=== PATIENT | male | born 1945 | race Caucasian/White ===

== ENCOUNTER 2025-05-30 23:08 | Inpatient (IN) | payer MEDICARE, SELFPAY ==
[2025-05-30] VITALS (8 sets, daily range): BP systolic 125–151; BP diastolic 59–91; BMI 29.1
--- NOTE | 2025-05-30 17:41 | ED.GENMED ---
History of Present Illness
General
Chief Complaint: Abdominal Pain
Time Seen by Provider: 05/30/25 17:30
History of Present Illness
History of Present Illness:
79-year-old male history of atrial fibrillation on Xarelto, hypertension presenting with diffuse abdominal pain starting last night. Daughter states that patient had fever Tmax 101 last night with associated chills. Patient denies nausea, vomiting
or diarrhea. Patient denies urinary symptoms. Patient states that he did not take any of his medications today. Daughter reports constipation but patient states he is still passing gas. Patient denies any chest pain, shortness of breath, or
cough.
Phy Exam
Physical Exam
Physical Exam:
General: Alert, no acute distress
Head: NCAT
Eyes: clear conjunctiva
Neck: supple
Cardiac: Tachycardic, rhythm irregularly irregular
Lungs: clear to auscultation bilaterally. No wheezes, rales, or rhonchi. Speaking full unlabored sentences. No respiratory distress.
Abdomen: soft, nondistended, diffuse tenderness to palpation. No rebound or guarding.
MSK: no lower extremity edema bilaterally. No deformity
Skin: warm, dry
Neuro: Alert and oriented x3. no focal deficits
Course
Orders/Labs/Results
Orders:
Orders
05/30/25 17:39
CT Abd/pelvis W Iv Cont Urgent
Comment:
Reason For Exam: diffuse tenderness
Metoprolol [Lopressor] 5 mg IV NOW STA
Morphine Sulfate 4 mg IV NOW STA
Ondansetron Injectable [Zofran] 4 mg IV NOW STA
05/30/25 17:40
0.9% Sodium Chloride 1000 ml [Nss] 1,000 ml IV BOLUS
05/30/25 17:43
EKG [Electrocardiogram (*1)] Urgent
Reason for Study: Abdominal Pain
EKG- Treatment ONCE
05/30/25 17:49
CBC/With Diff [Complete Blood Count/With Diff] Urgent
CMP [Comprehensive Metabolic Panel] Urgent
Lactic Acid Urgent
Lipase Urgent
Troponin I Urgent
Blood Culture Q30M
KJ Source: Blood/Venous
Specimen Description:
05/30/25 18:08
UA Reflex to Culture [Urinalysis Reflex To Culture] Urgent
Date Specimen was Collected: 05/30/25
Time Specimen was Collected: 17:49
Urine Microscopic Reflex Cult Urgent
Blood Culture Q30M
KJ Source: Blood/Venous
Specimen Description:
Urine Culture Urgent
KJ Source: U
Specimen Description:
Date Specimen was Collected: 05/30/25
Time Specimen was Collected: 17:49
05/30/25 18:43
Metoprolol [Lopressor] 5 mg IV NOW STA
05/30/25 19:31
EKG [Electrocardiogram (*1)] Urgent
Reason for Study: Abdominal Pain
EKG- Treatment ONCE
05/30/25 19:45
Dicyclomine HCl [Bentyl] 20 mg IM NOW STA
Metoclopramide [Reglan] 10 mg IV NOW STA
05/30/25 19:47
HYDROmorphone [Dilaudid] 0.5 mg IV NOW STA
05/30/25 20:59
US Abdomen Complete/Upper Urgent
Reason For Exam: r/o cholecystitis
05/30/25 21:54
HYDROmorphone [Dilaudid] 0.5 mg IV NOW STA
05/30/25 22:37
STOOL [C difficile Antigen & Toxins] Urgent
KJ Source: Feces/Stool
Specimen Description:
Stool Culture Urgent
KJ Source: Feces/Stool
Specimen Description:
Stool For WBC Urgent
KJ Source: Feces/Stool
Specimen Description:
05/30/25 22:38
Admit/Transfer Patient As Directed
Co-Sign Provider:
Level of Care: Inpatient admission
Assign to:: Telemetry
Physician / Group: [facility]
Diagnosis: Sepsis
Reason for Telemetry: Arrhythmia
Date to Stop Telemetry: 06/02/25
Time to Stop Telemetry: 11:00
Reason for Hospitalization: IVF
Expected length of stay greater than two midnights?: Yes
ELOS- Estimated Length of Stay in days: 3
I certify the patient meets the requirements for IP care: Yes
Norovirus by PCR Urgent
KJ Source: Feces/Stool
Specimen Description:
05/30/25 22:40
Code Status As Directed
Resuscitation Status: Full Code
PRN Pain Medication Management As Directed
May give lesser potent ordered pain med per pt: Yes
preference::
Protocol:: Medication orders for pain may be administered in a
manner that supports deferring to patient preference
when the pt is:
- Requesting an ordered lesser potent pain medication.
Least to most potent pain medications are defined
as: acetaminophen < NSAID < tramadol < opioids
(morphine, oxycodone, hydromorphone).
- Requesting a lesser dose of the same medication IF
ORDERED.
- Requesting a less intrusive route of administration
if both routes are prescribed by the provider (PO <
IV).
06/02/25 11:00
DC Protocol for Telemetry ONCE
Abnormal Lab Results
05/30/25 05/30/25
17:49 18:08
MPV 11.2 H fL
(7.4-10.4)
Absolute Neuts (auto) 7.1 H 10^3/uL
(1.4-6.5)
Absolute Lymphs (auto) 0.8 L 10^3/uL
(1.2-3.4)
Neutrophils % 84.2 H %
(42.2-75.2)
Lymphocytes % 9.4 L %
(20.5-51.1)
Sodium 132 L mmol/L
(135-145)
Creatinine 0.6 L mg/dL
(0.7-1.3)
Glucose 185 H mg/dl
(70-99)
Lactic Acid 2.2 H mmol/L
(0.7-2.0)
Urine Ketones 3+ A
(Negative)
Leukocyte Esterase Rfl 2+ A
(Negative)
Urine Bacteria (Reflex) Few A
(Negative)
05/30/25 17:49
05/30/25 17:49
Vital Signs
Initial and Last Documented VS:
Initial Vital Signs
Temp Pulse Resp BP Pulse Ox
98.9 F 108 18 151/88 98
05/30/25 17:06 05/30/25 17:06 05/30/25 17:06 05/30/25 17:06 05/30/25 17:06
Last Documented Vital Signs
Temp Pulse Resp BP Pulse Ox
98.0 F 136 22 125/88 97
05/30/25 19:36 05/30/25 18:45 05/30/25 18:45 05/30/25 18:13 05/30/25 18:45
MDM/Problems Addressed
Differential Diagnosis Includes:
Diverticulitis, UTI, mesenteric ischemia, appendicitis
MDM/Problems Addressed:
79-year-old male history of A-fib, hypertension presenting with diffuse abdominal pain starting last night with fever and chills. On arrival, patient is in A-fib with RVR to rates 140s to 160s. Patient did not take any of his medications today.
Will give metoprolol, morphine, fluids, reassess
On reevaluation, patient was continuing to have abdominal pain, gave Dilaudid
After metoprolol 5 mg IV, patient converted to normal sinus rhythm. Repeat EKG shows sinus rhythm at 67 bpm with LA 172 QTc 443 right bundle branch block, no acute ischemic changes
Labs reviewed. Significant for WBC 8.5 with left shift. Lactic acid 2.2. Mild hyponatremia at 132. UA not convincing for UTI. CT abdomen pelvis shows Intrahepatic and extrahepatic bile duct dilatation. No appreciable choledocholithiasis by CT
but recommend correlation with laboratory values and MRCP/ERCP as clinically indicated. Possible cholelithiasis in the region of the gallbladder neck.
On reevaluation, patient continues to report abdominal pain despite morphine, Dilaudid. Patient reports right upper quadrant tenderness. Ordered ultrasound abdomen.
US abdomen shows cholelithiasis. No secondary sonographic findings to indicate acute cholecystitis. Mild intrahepatic and extrahepatic bile duct dilatation.
Discussed with hospitalist for admission
*Pulse Oximetry
SaO2: 98
Oxygen Mode of Delivery: Room air
Patient hypoxic: no
*EKG
Interpreted by ED Provider?: Yes (Initial EKG shows atrial fibrillation at 144bpm with QRS 108 QTc 489 RBBB no stemi. Repeat EKG shows NSR at 67bpm with LA 172 QTc 443 RBBB, no stemi)
*Critical Care Note
Total Time (30-74mins, 75-104mins- exclusive of procedures): Not Applicable
ED Attending Note
-
Portions of this chart may have been created with voice recognition software.� Occasional wrong word or��sound alike� substitutions may have occurred due to the inherent limitations of voice recognition software.
Discharge Plan
Departure
Patient Disposition: Admit
Date of Disposition: 05/30/25
Time of Disposition: 22:13
Presentation/result/management discussed w/ accepting MD/DO: Hospitalist
Discharge Problem:
Intractable abdominal pain, Intrahepatic bile duct dilation
Prescriptions:
No Action
tamsulosin [Flomax] 0.4 mg Capsule
0.4 mg PO HS
metoprolol succinate [Toprol XL] 25 mg Tablet Extended Release 24 Hr
25 mg PO DAILY
amlodipine-benazepril 10-40 mg Capsule
1 cap PO DAILY
Xarelto 20 mg Tablet
20 mg PO QPM
Referrals:
CLIF HURTADO [Other]
Interventions
Interventions:
*Risk Screen - Suicide Last Done: 05/30/25 17:06
*General Assessment Last Done: 05/30/25 17:06
*ED COVID-19 Vaccine History Last Done: 05/30/25 17:06
BM-Yfogis-Nedjywqwyu Assessment Last Done: 05/30/25 17:34
Discharge Date and Time
Print Language: CHILEAN
[2025-05-30 18:09] LABS: Hematocrit 41.9 % (39.0-52.0); Hemoglobin 14.0 g/dL (13.0-18.0); Mean Corp Hgb Conc. 33.4 g/dL (33.0-37.0); Mean Corpuscular Volume 83.8 fL (80.0-94.0); Nucleated Red Blood Cells % 0 % (-); Platelet Count 216 10^3/uL (130-400); Red Cell Dist. Width 14.0 % (11.5-14.5)
[2025-05-30] MEDS: NSS 1000 IV (18:09)
[2025-05-30] MEDS: ZOFRAN 4 MG IV (18:09)
[2025-05-30] MEDS: LOPRESSOR 5 MG IV (18:13)
[2025-05-30 18:23] LABS: ALT (SGPT) 12 U/L (0-50); AST (SGOT) 22 U/L (17-59); Albumin 4.4 g/dl (3.5-5.0); Alkaline Phosphatase 60 U/L (38-126); Blood Urea Nitrogen 17 mg/dl (9-20); Calcium 9.3 mg/dl (8.4-10.2); Carbon Dioxide 25 mmol/L (22-30); Chloride 102 mmol/L (98-107); Estimated Creatinine Clearance 77 ml/min; Glucose 185 mg/dl (70-99); Lipase 107 U/L (23-300); Potassium 4.9 mmol/L (3.5-5.1); Sodium 132 mmol/L (135-145); Total Protein 7.4 g/dl (6.3-8.2); eGFR > 60.00
[2025-05-30] MEDS: MORPHINE SULFATE 4 MG IV (18:29)
[2025-05-30 18:31] LABS: Troponin I < 0.012 ng/ml
[2025-05-30 18:58] LABS: Urine Character Clear (Clear)
[2025-05-30 19:20] LABS: Urine Red Blood Cell 0-2 /HPF (0-2); Urine White Cell 0-2 /HPF (0-5)
[2025-05-30] MEDS: DILAUDID 0.5 MG IV ×2 (20:01→22:15)
--- NOTE | 2025-05-30 22:14 | HPS.HSE ---
Family Physician
-
Family Physician: CLIF HURTADO
Chief Complaint
-
Abdominal Pain
History of Present Illness
Patient is a 79 y/o male past medical history of paroxysmal atrial fibrillation, hypertension, and BPH who presents with abdominal pain and fever. Additional history obtained from family at bedside. Patient reports abdominal pain started last
night. He describes sharp pain in the lower abdomen. Patient admits to fever last night of 101F with associated chills. Pain persisted throughout day prompting him to come to the emergency department for evaluation. Patient denies nausea,
vomiting, or diarrhea. However he appears nausea during my evaluation, and daughter at bedside reports patient has not been having normal bowel movements for quite sometime described as very loose to diarrheal-like and notes his stools smell very
foul. Last bowel movement yesterday morning which daughter notes is abnormal.
Upon arrival to the emergency department patient was found to have atrial fibrillation with rapid ventricular response. Patient reports he did not take his medications this morning. He was given a dose of IV Lopressor and converted back to normal
sinus rhythm.
Medical History
Past Medical History
Past Medical History: Reports Other
Additional Past Medical History:
Paroxysmal Atrial Fibrillation
Essential Hypertension
BPH
Nephrolithiasis
Past Surgical History: Reports Other
Additional Past Surgical History:
Left Hip Replacement
Hernia Repair
Social History
Tobacco: Former Smoker (Quit about 30 years ago)
Family History
Family History: Not pertinent
Allergies / Home Medications
Allergies reflects when Allergies were last updated in [facility].
Home Medications with original date entered in [facility]
Allergy/Medication List:
Allergies
Allergy/AdvReac Type Severity Reaction Status Date / Time
No Known Allergies Allergy Unverified 05/30/25 17:10
Home Medications
amlodipine 10 mg-benazepril 40 mg capsule 1 cap PO DAILY 05/30/25
metoprolol succinate 25 mg tablet,extended release 24 hr (Toprol XL) 25 mg PO DAILY 05/30/25
rivaroxaban 20 mg tablet (Xarelto) 20 mg PO QPM 05/30/25
tamsulosin 0.4 mg capsule (Flomax) 0.4 mg PO HS 05/30/25
Review of Systems
-
A 12 point ROS was completed and negative except as noted: Yes
Constitutional: Reports Fever and Chills
Respiratory: Denies Cough or Trouble Breathing
Cardiac: Denies Chest Pain or Palpitations
Abdomen/GI: Reports See HPI
Physical Exam
Vital Signs
Vital Signs
Temp Pulse Resp BP Pulse Ox
98.0 F 136 22 125/88 97
05/30/25 19:36 05/30/25 18:45 05/30/25 18:45 05/30/25 18:13 05/30/25 18:45
Physical Exam
General: Well Developed, Well Nourished and Conversant
HEENT: NormoCephalic and Anicteric
Respiratory: Clear and Non Labored Respirations
Cardiac: S1/S2 and Regular Rhythm
GI: Soft and Tender (Mild in lower quadrants without rebound or guarding)
Rectal: Deferred by Provider
Musculoskeletal: No Clubbing and No Cyanosis
Skin: Warm and Dry
Neuro: Awake, Alert, Oriented and No Motor Deficits
Psych: Calm
Laboratory Results
-
05/30/25 17:49
05/30/25 17:49
Laboratory Results
Lactic Acid 2.2 mmol/L (0.7-2.0) H 05/30/25 17:49
Total Bilirubin 0.6 mg/dl (0.2-1.3) 05/30/25 17:49
AST 22 U/L (17-59) 05/30/25 17:49
ALT 12 U/L (0-50) 05/30/25 17:49
Alkaline Phosphatase 60 U/L (38-126) 05/30/25 17:49
Troponin I < 0.012 ng/ml 05/30/25 17:49
Lipase 107 U/L (23-300) 05/30/25 17:49
Abdomen US:
Cholelithiasis. No secondary sonographic findings to indicate acute cholecystitis. Mild intrahepatic and extrahepatic bile duct dilatation.
Abd/Pelvis CT Scan:
Intrahepatic and extrahepatic bile duct dilatation. No appreciable choledocholithiasis by CT, but recommend correlation with laboratory values and MRCP/ERCP as clinically indicated. Possible cholelithiasis in the region of the gallbladder neck.
Data Reviewed
-
CT Scan: Report Reviewed by me
Ultrasound: Report Reviewed by me
Lab Data: Labs Reviewed by me
Impression/Plan
-
Sepsis / Abdominal Pain, possibly related to gastroenteritis vs ileus
-Abdominal imaging with intra/extrahepatic duct dilation however patient reports more lower abdominal pain, and LFTs are within normal limit therefore doubt choledocholithiasis as cause of symptoms
-Continue NPO/IVFs
-Continue Zofran for nausea and Dilaudid prn pain
-Check stool studies
-Trend lactic acid level
Paroxysmal Atrial Fibrillation
-Patient initially with episode of rapid ventricular response following missed medications this mornign which resolved with IV Lopressor
-Continue Xarelto for anticoagulation
-Continue Toprol XL for rate control
Essential Hypertension
-Continue amlodipine/benazepril
DVT proph: Xarelto
Code Status: Full Code
--- NOTE | 2025-05-30 23:03 | W.PN.UPDATE ---
Update Note
Progress Note Update
This is an addendum to H&P written by Gwen Parry on 05/30/2025. �Patient seen and examined independently with PA.
79-year-old male past medical history of atrial fibrillation on Xarelto, hypertension, chronic loose stools, presenting for abdominal pain. �Temperature 101 last night. �No nausea vomiting or diarrhea. �Patient with constipation relative to usual.
Patient tachycardic up to 130s with atrial fibrillation.
Labs unremarkable apart from lactate of 2.2. �Abdominal ultrasound showed cholelithiasis without evidence of acute cholecystitis. �Mild intrahepatic and extrahepatic bile duct dilatation. �CT abdomen pelvis showed intrahepatic and extrahepatic bile
duct dilatation without evidence of choledocholithiasis. �Urinalysis unremarkable.
Patient with sepsis secondary to suspected gastroenteritis/colitis/ileus that may have been missed by CT scan. �There is no transaminitis or hyperbilirubinemia to suggest choledocholithiasis although there is bile duct dilatation. �Location of the
pain not consistent with choledocholithiasis.
Patient also with atrial fibrillation with RVR which improved with IV fluids and metoprolol. �Now in sinus rhythm.
Blood cultures pending. �IV fluids. �Monitor off antibiotics. Consider GI
[2025-05-31] VITALS (10 sets, daily range): BP systolic 115–151; BP diastolic 60–95; BMI 29.6
[2025-05-31] MEDS: XARELTO 20 MG PO ×2 (01:30→17:05)
[2025-05-31] MEDS: DILAUDID 0.25 MG IV ×3 (01:30→12:39)
[2025-05-31] MEDS: NSS 1000 IV ×3 (01:30→22:35)
--- NOTE | 2025-05-31 01:30 | PTCARENOTE ---
Pt admit from ED via stretcher. Ambulated into room independently. c/o 8/10 abdominal pain. Placed on monitor-NSR. Assessment as charted. Pt med with dilaudid once meds verified.
[2025-05-31] MEDS: LOPRESSOR 5 MG IV ×2 (03:40→12:26)
--- NOTE | 2025-05-31 03:45 | PTCARENOTE ---
Pt OOB to bathroom. Heart rate 150s and pt now in afib. After pt back to bed VS taken. Pt afebrile. Heart rate sustaining 130s. House [employer] notified. Pt med with lopressor 5mg IV. Will continue to monitor.
[2025-05-31 05:47] LABS: Hematocrit 40.3 % (39.0-52.0); Hemoglobin 13.4 g/dL (13.0-18.0); Mean Corp Hgb Conc. 33.3 g/dL (33.0-37.0); Mean Corpuscular Volume 84.3 fL (80.0-94.0); Platelet Count 202 10^3/uL (130-400); Red Cell Dist. Width 14.0 % (11.5-14.5)
[2025-05-31] MEDS: TOPROL XL 25 MG PO (06:13)
--- NOTE | 2025-05-31 06:15 | PTCARENOTE ---
Heart rate improved after lopressor-now running 90s-110s but still with bursts to 140s. Discussed with nieves JUAREZ. Pt given am dose of toprol XL now.
[2025-05-31 07:15] LABS: ALT (SGPT) 18 U/L (0-50); AST (SGOT) 35 U/L (17-59); Albumin 3.7 g/dl (3.5-5.0); Alkaline Phosphatase 56 U/L (38-126); Blood Urea Nitrogen 9 mg/dl (9-20); Calcium 8.6 mg/dl (8.4-10.2); Carbon Dioxide 22 mmol/L (22-30); Chloride 102 mmol/L (98-107); Estimated Creatinine Clearance 78 ml/min; Glucose 127 mg/dl (70-99); Potassium 4.1 mmol/L (3.5-5.1); Sodium 132 mmol/L (135-145); Total Protein 6.4 g/dl (6.3-8.2); eGFR > 60.00
[2025-05-31] MEDS: NORVASC 10 MG PO (07:56)
--- NOTE | 2025-05-31 11:37 | W.PN.HOSP.TC ---
Addendum entered and electronically signed by Pastora Merrill MD 05/31/25 15:31:
I saw and evaluated the patient independently. I reviewed the resident�s note and agree with findings and plan as documented by Dr. Arroyo.
GENERAL: well developed, well nourished, male in no apparent distress
HEENT: NC/AT--no O2 requirements
HEART: irreg irreg, tachycardic
LUNGS : clear to auscultation bilaterally
ABDOM: soft, nontender, nondistended, + bowel sounds
EXT: no cyanosis, clubbing, or edema
NEUROLOGIC: grossly intact
Abdominal Pain--unclear cause [Gastroenteritis vs UTI?]--no obvious source--cultures pending--hold ABX--LFTs WNL--await GI input
Paroxysmal Atrial Fibrillation--pt uncontrolled and tachycardic--cont metoprolol and xarelto--consult cards--standing IV lopressor in addition not helping--started cardizem drip, non titratable
Essential Hypertension--Continue amlodipine-benzepril
BPH-Continue tamsulosin
DVT proph
code status--full code
Original Note:
Today's Communication/Plan
-
Consulting GI
Assessment / Plan
Assessment / Plan
Assessment
This is a 79 y/o male with pmhx of paroxysmal atrial fibrillation, essential hypertension and BPH who presented tot he ED on 05/30/2025 with abdominal pain and fever of 101F and chills which began the night prior.
Plan
Abdominal Pain [Gastroenteritis vs UTI?]
-Patient has been afebrile during entire hospitalization. No current indication for antibiotics. Will follow blood and urine cultures.
-LFTs normal, unlikely to be liver. Pending Hepatitis antibody
-Continue Zofran PRN for nausea and Dilaudid PRN for pain
-Consulted GI, would appreciate their insight.
Paroxysmal Atrial Fibrillation
-Patient has had a few episodes of reported atrial fibrillation while admitted to the hospital.
-Continue metoprolol and xarelto
Essential Hypertension
-Continue amlodipine-benzepril
BPH
-Continue tamsulosin
Anticipated Discharge: 24 - 48 hours
Subjective/Interval History
-
Date of Service: May 31, 2025
Patient was well when I went to see him. He reports his abdominal pain was reduced, though still reportedly present in his bilateral lower abdominal area. He states his abdominal pain does not change if he consumes food or changes positions. He
denies any history of nausea, vomiting, diarrhea, constipation. He denies current fever or chills, though reports he did have chills yesterday. He does report he has not eaten anything in the last 2 days, which he states was not due to nausea but
simply because he did not want to.
Objective Data
-
Labs:
Laboratory Results
05/31/25
05:32
WBC 9.7
Hgb 13.4
Hct 40.3
Plt Count 202
Sodium 132 L
Potassium 4.1
Chloride 102
Carbon Dioxide 22
BUN 9
Creatinine 0.5 L
Glucose 127 H
Calcium 8.6
Total Bilirubin 0.8
AST 35
ALT 18
Alkaline Phosphatase 56
Vital Signs:
Vital Signs
Temp Pulse Resp BP Pulse Ox
97.9 F 92 16 142/84 96
05/31/25 07:25 05/31/25 07:56 05/31/25 07:25 05/31/25 07:56 05/31/25 11:00
I&O
05/30/25 05/31/25 06/01/25
06:59 06:59 06:59
Output Total 280 / 280
Balance -280 / -280
Review of Systems
-
History Source: Patient
Constitutional: Reports No Symptoms
Cardiac: Reports No Symptoms
Abdomen/GI: Reports No Symptoms
Musculoskeletal: Reports No Symptoms
Neuro: Reports No Symptoms
Physical Exam
-
General: Well Developed, Well Nourished, No Apparent Distress and Comfortable
HEENT: Normocephalic and Atraumatic
Respiratory: Clear to Auscultation
Cardiac: S1/S2 and Irregular Rhythm
GI: Soft, Nontender, Nondistended and Normal Bowel Sounds
Psych: Calm
--- NOTE | 2025-05-31 14:22 | CM ---
Patient seen at bedside with patient daughter present, on . Patient stated that he lives with daughter and family. Patient bedroom is on the first floor and per daughter there is 2 steps to enter. Patient does not have any DME and Patient
uses the [facility] in [place]. Patient PCP is Dr. Balderas. Per Daughter plan is for discharge home when medically appropriate. CM will continue to follow for discharge planning needs.
Plan; home with VN vs home with no needs.
--- NOTE | 2025-05-31 14:29 | PTCARENOTE ---
Pt afib on the monitor, HR fluctuating from 110s-150s. notified. 5mg IV lopressor ordered Q4hrs. Post administration, HR sustained 90s-120s with occassional jumps into 140s. Pt still in afib, no complaints of chest pain/palpitations. Will
continue to monitor.
--- NOTE | 2025-05-31 15:55 | CON.CAR ---
Addendum entered and electronically signed by Williams Torres MD 05/31/25 19:19:
Primary Commercial Intern/PCP: Dr. Marco Balderas of [facility]
Presents to ER with abdominal discomfort.
Medical hx of kidney stones and afib on xarelto who has had vague abdominal d/c (not localized) on and off for months. No vomiting or fevers. not related to food. no hx of PUD, not on nsaids. Constipation but not severe.
Ct with dilated intrahepatic and extrahepatic dilation and cholelithiasis. LFTs normal.
In the ER he is found to have AF with rapid ventricular rates.
Assessment:
Presentation with abd pain
Paroxysmal atrial fibrillation
Chronic anticoagulation with Xarelto
Hypertension
History of possible CVA which daughter reports was noted on a prior scan, patient asymptomatic
BPH
Hyponatremia
ECHO 05/31/25: pending
Plan:
He has asymptomatic PAF with rapid rates at times.
Acutely will focus on maintaining anticoagulation and rate control.
Check echo
Check TSH
Would likely benefit from outpatient EP follow-up
We discussed with Dr. Balderas via telephone.
Original Note:
Consultation
Consultation Request
Date/Time Consultation Performed: 05/31/25
Requesting Provider: Dr. Merrill
Performing Provider: Leyla Morejon PA-C for Dr. Boom Torres
Reason for Consultation: afib with RVR
Medical History
-
Chief Complaint: abd pain
History of Present Illness:
Patient is a 79-year-old male with past medical history of hypertension, paroxysmal atrial fibrillation on chronic Xarelto, BPH who presented to [facility] for evaluation of abd pain. He reports pain is diffuse. Daughter at bedside reports her father's
bowel movements are typically loose and 'not normal'. He has not had a bowel movement in several days. He has not been eating well. Daughter reports that the first night he began to have pain he had fever/chills but none since then. GI has been
consulted. Cardiology consulted as patient had afib on arrival and converted spontaneously to SR however then again today went into afib and remains in afib at this time. Cardiology consulted for evaluation. Patient reports at times while he is
gardening or doing activity he may notice his heart racing, however historically has not been symptomatic with his atrial fibrillation. He denies history of cardioversion or ablation in the past. He denies any chest pain or shortness of breath.
He is followed by a it security consulting director/PCP in [facility], which is where they used to live until he came to live with her daughter several years ago in [place]. They continue to travel to [place] to see him every 3 months.
PMH:
Paroxysmal atrial fibrillation
Chronic anticoagulation with Xarelto
Hypertension
History of possible CVA which daughter reports was noted on a prior scan
BPH
Past Medical History
Past Medical History: Other (in HPI)
Social History
Tobacco: Non-Smoker
Alcohol: None
Personal:
Living: With Family
Family History
Family History: Early CAD (in father, mother had heart issues but lived to 99 yo)
Allergies / Home Medications
Allergy/AdvReac Type Severity Reaction Status Date / Time
No Known Allergies Allergy Unverified 05/30/25 17:10
�Medication �Instructions �Recorded �Confirmed �Type
amlodipine 10 mg-benazepril 40 mg 1 cap PO DAILY 05/30/25 05/30/25 History
capsule
metoprolol succinate 25 mg 25 mg PO DAILY 05/30/25 05/30/25 History
tablet,extended release 24 hr
(Toprol XL)
rivaroxaban 20 mg tablet (Xarelto) 20 mg PO QPM 05/30/25 05/30/25 History
tamsulosin 0.4 mg capsule (Flomax) 0.4 mg PO HS 05/30/25 05/30/25 History
Review of Systems
-
History Source: Patient and Family
All other systems: Negative unless noted
Physical Exam
Vital Signs
Temp Pulse Resp BP Pulse Ox
97.5 F 123 17 127/74 95
05/31/25 15:44 05/31/25 15:44 05/31/25 15:44 05/31/25 15:44 05/31/25 15:44
Lab Results
05/31/25 05:32
05/31/25 05:32
Troponin I < 0.012 ng/ml 05/30/25 17:49
Physical Exam
General: No Apparent Distress and Comfortable
HEENT: Normocephalic, Anicteric and Moist Mucous Membranes
Respiratory: Clear and Non Labored Respirations
Cardiac: S1/S2 and Irregular Rhythm
GI: Soft, Non Distended, Normal Bowel Sounds and Tender
Musculoskeletal: No Clubbing, No Cyanosis and No Edema
Skin: Warm and Dry
Neuro: AO x 3
Impression / Plan
-
Primary Commercial Intern/PCP: Dr. Marco Balderas of [facility]
Assessment:
Presentation with abd pain
Paroxysmal atrial fibrillation
Chronic anticoagulation with Xarelto
Hypertension
History of possible CVA which daughter reports was noted on a prior scan, patient asymptomatic
BPH
Hyponatremia
ECHO 05/31/25: pending
Plan:
-Patient presented with abdominal pain. Concern for gastroenteritis vs cholelithiasis by CT report. Being managed by primary service. Receiving IV fluid. GI also consulted. Patient reports some improvement from admission.
- Noted to have paroxysms of A-fib since admission. He is asymptomatic. He was given IV Lopressor without improvement, and IV Cardizem drip has been ordered
- Possible that patient has been having paroxysms of A-fib as an outpatient as well and not feeling them.
- Continue outpatient Toprol and Xarelto. May need to consider antiarrhythmic drug therapy if remains paroxysmal
- Check echo
- Check TSH
- Would consider outpatient EP follow-up
- Discussed with Dr. Balderas via telephone.
Data Reviewed
-
EKG: Tracing Personally Visualized and interpreted
CT Scan: Report Reviewed by me
Labs: Labs Reviewed by me
Old Records: Requested and Reviewed
--- NOTE | 2025-05-31 16:23 | CON.GI ---
Consultation
-
Date/Time Consultation Requested: 05/31/25 3pm
Date/Time Consultation Performed: 05/31/25 at 3:30
Requesting Provider: nic
Performing Provider: tre
Reason for Consultation: abd pain
Medical History
Chief Complaint / HPI
Chief Complaint: abd pain
History of Present Illness:
This pt is a 79 y/o with a hx of kidney stones and afib on xarelto who has had vague abdominal d/c (not localized) on and off for months. No vomiting or fevers. not related to food. no hx of PUD, not on nsaids. Constipation but not severe.
Ct with dilated intrahepatic and extrahepatic dilation and cholelithiasis. LFTs normal
Past Medical History
Past Medical History: Other (afib, htn, bph, kidney stones)
Past Surgical History: Other (hip and hernia repair)
Social History
Tobacco: Former Smoker
Family History
Family History: Reviewed & Not Pertinent
Allergies / Home Medications
Allergy/AdvReac Type Severity Reaction Status Date / Time
No Known Allergies Allergy Unverified 05/30/25 17:10
�Medication �Instructions �Recorded
amlodipine 10 mg-benazepril 40 mg 1 cap PO DAILY 05/30/25
capsule
metoprolol succinate 25 mg 25 mg PO DAILY 05/30/25
tablet,extended release 24 hr
(Toprol XL)
rivaroxaban 20 mg tablet (Xarelto) 20 mg PO QPM 05/30/25
tamsulosin 0.4 mg capsule (Flomax) 0.4 mg PO HS 05/30/25
Review of Systems
-
All other systems: A 12 pt ROS was Negative except as stated above in HPI
Vital Signs
Temp Pulse Resp BP Pulse Ox
97.5 F 123 17 127/74 95
05/31/25 15:44 05/31/25 15:44 05/31/25 15:44 05/31/25 15:44 05/31/25 15:44
Physical Exam
Exam
General: No Apparent Distress
Cardiac: S1/S2
GI: Soft and Non Tender
Neuro: Awake
Psych: Calm
Results
WBC 9.7 10^3/uL (4.8-10.8) 05/31/25 05:32
Hgb 13.4 g/dL (13.0-18.0) 05/31/25 05:32
Hct 40.3 % (39.0-52.0) 05/31/25 05:32
MCV 84.3 fL (80.0-94.0) 05/31/25 05:32
Plt Count 202 10^3/uL (130-400) 05/31/25 05:32
Absolute Neuts (auto) 7.1 10^3/uL (1.4-6.5) H 05/30/25 17:49
Sodium 132 mmol/L (135-145) L 05/31/25 05:32
Potassium 4.1 mmol/L (3.5-5.1) 05/31/25 05:32
Chloride 102 mmol/L (98-107) 05/31/25 05:32
Carbon Dioxide 22 mmol/L (22-30) 05/31/25 05:32
BUN 9 mg/dl (9-20) 05/31/25 05:32
Creatinine 0.5 mg/dL (0.7-1.3) L 05/31/25 05:32
Calcium 8.6 mg/dl (8.4-10.2) 05/31/25 05:32
Total Bilirubin 0.8 mg/dl (0.2-1.3) 05/31/25 05:32
AST 35 U/L (17-59) 05/31/25 05:32
ALT 18 U/L (0-50) 05/31/25 05:32
Alkaline Phosphatase 56 U/L (38-126) 05/31/25 05:32
Lipase 107 U/L (23-300) 05/30/25 17:49
Assessment / Plan
-
Pt is a 79 y/o with dilated bile ducts and abdominal pain. Based on LFTS it is probable he passed a gallstone. for now:
1. MRI/MRCP
2. follow lfts
3. ERCP only if retained stone but highly unlikely; if not can consult surgery for potential cholelithiasis
4. miralax prn
5. has had colonoscopy 3x in past with no issues
-
-
Thank you for consultation and allowing me to participate in the patient's care. Please call the production recorder GI physician during the after hours with any questions or concerns.
[2025-05-31] MEDS: CARDIZEM 125 IV (17:05)
--- NOTE | 2025-05-31 18:00 | PTCARENOTE ---
---No improvement of HR with IV lopressor. Pt remains in afib on the monitor. Cardizem gtt ordered and started @ 10ml/hr. Hr now 110s-130s. POC ongoing.
[2025-05-31 20:08] LABS: Hepatitis C Antibody Negative (Negative)
[2025-05-31] MEDS: NSS IV (22:33)
[2025-05-31] MEDS: FLOMAX 0.4 MG PO (22:36)
[2025-06-01 00:48] VITALS: BP 127/67
[2025-06-01 03:51] VITALS: BP 121/56
[2025-06-01] MEDS: CARDIZEM 125 IV (05:47)
[2025-06-01] MEDS: NSS 1000 IV (06:00)
[2025-06-01 06:45] LABS: Hematocrit 39.0 % (39.0-52.0); Hemoglobin 12.5 g/dL (13.0-18.0); Mean Corp Hgb Conc. 32.1 g/dL (33.0-37.0); Mean Corpuscular Volume 84.6 fL (80.0-94.0); Platelet Count 197 10^3/uL (130-400); Red Cell Dist. Width 14.0 % (11.5-14.5)
[2025-06-01 07:10] LABS: ALT (SGPT) 11 U/L (0-50); AST (SGOT) 19 U/L (17-59); Albumin 3.0 g/dl (3.5-5.0); Alkaline Phosphatase 55 U/L (38-126); Blood Urea Nitrogen 8 mg/dl (9-20); Calcium 8.4 mg/dl (8.4-10.2); Carbon Dioxide 24 mmol/L (22-30); Chloride 106 mmol/L (98-107); Estimated Creatinine Clearance 67 ml/min; Glucose 95 mg/dl (70-99); Potassium 3.6 mmol/L (3.5-5.1); Sodium 135 mmol/L (135-145); Total Protein 5.4 g/dl (6.3-8.2); eGFR > 60.00
--- NOTE | 2025-06-01 07:17 | W.PN.HOSP.TC ---
Addendum entered and electronically signed by Pastora Merrill MD 06/01/25 13:46:
I saw and evaluated the patient independently. I reviewed the resident�s note and agree with findings and plan as documented by Dr. Arroyo.
GENERAL: well developed, well nourished, male in no apparent distress
HEENT: NC/AT--no O2 requirements
HEART: RRR and no longer tachycardic
LUNGS : clear to auscultation bilaterally
ABDOM: soft, nontender, nondistended, + bowel sounds
EXT: no cyanosis, clubbing, or edema
NEUROLOGIC: grossly intact
Abdominal Pain--likely due to acute cholecystitis--confirmed by MRI--apprec GI/consult surgery----hold ABX--LFTs WNL---cont IVF
Paroxysmal Atrial Fibrillation--pt uncontrolled and tachycardic--cont metoprolol and xarelto--apprec cards--stop cardizem drip and cont on usual meds
Essential Hypertension--Continue amlodipine-benzepril
BPH-Continue tamsulosin
DVT proph
code status--full code
Original Note:
Today's Communication/Plan
-
MRI scheduled for today
Assessment / Plan
Assessment / Plan
Assessment
This is a 79 y/o male with pmhx of paroxysmal atrial fibrillation, essential hypertension and BPH who presented tot he ED on 05/30/2025 with abdominal pain and fever of 101F and chills which began the night prior.
Plan
Abdominal Pain [Gastroenteritis vs cholelithiasis]
-Patient has been afebrile during entire hospitalization. No current indication for antibiotics. Blood cultures negative.
-LFTs normal
-Continue Zofran PRN for nausea and Dilaudid PRN for pain
-Pending MRI of abdomen r/o cholelithiasis
Paroxysmal Atrial Fibrillation
-Patient has had a few episodes of reported atrial fibrillation while admitted to the hospital.
-Continue metoprolol and cardizem
Essential Hypertension
-Continue amlodipine-benzepril
BPH
-Continue tamsulosin
Anticipated Discharge: Within 24 hours
Subjective/Interval History
-
Date of Service: June 01, 2025
Doing well without any complaints or concerns. He reports no bowel movements while here, and denies any diarrhea at home. He reports his abdominal pain is significantly improved from yesterday, and almost gone.
Objective Data
-
Labs:
Laboratory Results
06/01/25
06:07
WBC 8.6
Hgb 12.5 L
Hct 39.0
Plt Count 197
Sodium 135
Potassium 3.6
Chloride 106
Carbon Dioxide 24
BUN 8 L
Creatinine 0.7
Glucose 95
Calcium 8.4
Total Bilirubin 0.9
AST 19
ALT 11
Alkaline Phosphatase 55
Vital Signs:
Vital Signs
Temp Pulse Resp BP Pulse Ox
98.2 F 67 17 121/56 97
06/01/25 03:51 06/01/25 03:51 06/01/25 03:51 06/01/25 03:51 06/01/25 03:51
I&O
05/31/25 06/01/25 06/02/25
06:59 06:59 06:59
Output Total 280 / 280
Balance -280 / -280
Review of Systems
-
History Source: Patient
Constitutional: Reports No Symptoms
Respiratory: Reports No Symptoms
Cardiac: Reports No Symptoms
Abdomen/GI: Reports Abdominal Pain (Very mild); Denies Nausea, Vomiting, Diarrhea, Constipated or Black Stools
Musculoskeletal: Reports No Symptoms
Skin: Reports No Symptoms
Neuro: Reports No Symptoms
Physical Exam
-
General: Well Developed and Well Nourished
HEENT: Normocephalic and Atraumatic
Respiratory: Clear to Auscultation
Cardiac: Regular Rhythm and S1/S2
GI: Soft and Nontender
Skin: Warm and Dry
Neuro: Awake, Alert and Oriented
Psych: Calm
[2025-06-01 07:30] VITALS: BP 116/50
--- NOTE | 2025-06-01 07:50 | PTCARENOTE ---
Patient had Cardizem drip infusing at 10ml, now in a SR with PAC, HR 68-77. Cardiology made aware and will be here shortly to evaluate patient.
--- NOTE | 2025-06-01 08:57 | W.PN.GI.CBS2 ---
Today's Communication / Plan
-
LFTs normal. Abdominal Pain resolved. Infectious workup negative thus far. f/u MRI/MRCP
Assessment / Plan
-
Pt is a 79 y/o with dilated bile ducts and abdominal pain. Based on LFTS it is probable he passed a gallstone, continues to have normal LFTs. Abdominal pain now resolved. Blood and urine cultures prelim neg.
Plan:
-follow LFTs--continues to be normal.
-MRI/MRCP pending --> ERCP only if retained stone but highly unlikely; if not can consult surgery for potential cholelithiasis
-miralax prn--Recommend giving a dose now
-has had colonoscopy 3x in past with no issues
Subjective
Subjective
Date of Service: June 01, 2025
Patient seen in follow-up. He endorses improvement in abdominal pain. Prelim Bc negative, urine cx with mixed ori, likely contaminant. Tmax 99.2 in last 24 hours.
Objective
Data Reviewed
Laboratory Data:
Laboratory Results
06/01/25 06:07
06/01/25 06:07
Laboratory Results
Total Bilirubin 0.9 mg/dl (0.2-1.3) 06/01/25 06:07
AST 19 U/L (17-59) 06/01/25 06:07
ALT 11 U/L (0-50) 06/01/25 06:07
Alkaline Phosphatase 55 U/L (38-126) 06/01/25 06:07
Lipase 107 U/L (23-300) 05/30/25 17:49
Vital Signs and I&O:
Vital Signs
Temp Pulse Resp BP Pulse Ox
98.6 F 62 16 116/50 94
06/01/25 07:30 06/01/25 07:30 06/01/25 07:30 06/01/25 07:30 06/01/25 07:30
I&O
05/31/25 06/01/25 06/02/25
06:59 06:59 06:59
Intake Total 1200 / 1200
Output Total 280 / 280 800 / 800
Balance -280 / -280 400 / 400
Physical Exam
Physical Exam
General: No Apparent Distress
Cardiac: S1/S2
GI: Soft and Non Tender
Neuro: Awake
Psych: Calm
[2025-06-01] MEDS: NORVASC 10 MG PO (10:39)
[2025-06-01] MEDS: TOPROL XL 25 MG PO (10:39)
[2025-06-01] MEDS: MIRALAX 17 GRAMS PO (10:40)
[2025-06-01 11:45] VITALS: BP 121/51
--- NOTE | 2025-06-01 12:01 | W.PN.CARDCBS ---
Today's Communication / Plan
-
I have no further inpatient cardiac recommendations
Continue current do
Impression / Plan
-
Primary Red Hat Linux Engineer/PCP: Dr. Marco Balderas of [facility]
Primary Red Hat Linux Engineer/PCP: Dr. Marco Balderas of [facility]
Presented to ER with abdominal discomfort.
Medical hx of kidney stones and afib on xarelto who has had vague abdominal d/c (not localized) on and off for months. No vomiting or fevers. not related to food. no hx of PUD, not on nsaids. Constipation but not severe.
Ct with dilated intrahepatic and extrahepatic dilation and cholelithiasis. LFTs normal.
In the ER he is found to have AF with rapid ventricular rates. He has a known history of paroxysmal atrial fibrillation.
He is abdominal pain has resolved, he has been seen by gastroenterology. It is suspected he passed a gallstone.
Assessment:
Presentation with abd pain
Paroxysmal atrial fibrillation
Chronic anticoagulation with Xarelto
Hypertension
History of possible CVA which daughter reports was noted on a prior scan, patient asymptomatic
BPH
Hyponatremia
ECHO 05/31/25: Normal left ventricular size and function with ejection fraction of 55 to 60%. No significant valvular disease. No prior echocardiogram for comparison
TSH is normal at 1.57
Plan:
He has asymptomatic PAF with rapid rates at times.
Acutely focus was on maintaining anticoagulation and rate control.
He spontaneously cardioverted to sinus rhythm.
I have no further inpatient cardiac recommendations
Continue current dose of metoprolol and continue oral anticoagulation for atrial fibrillation related thromboembolic risk reduction
Will sign off please call if any further questions
Would likely benefit from outpatient EP follow-up
We discussed with Dr. Balderas via telephone.
Progress Note - Red Hat Linux Engineer
Subjective
Date of Service: June 01, 2025
He tells me he feels well. No chest pain shortness of breath palpitations or dizziness. He is hungry and would like to eat.
Objective
Labs:
06/01/25 06:07
06/01/25 06:07
Labs
Hgb 12.5 g/dL (13.0-18.0) L 06/01/25 06:07
Hct 39.0 % (39.0-52.0) 06/01/25 06:07
Plt Count 197 10^3/uL (130-400) 06/01/25 06:07
Sodium 135 mmol/L (135-145) 06/01/25 06:07
Potassium 3.6 mmol/L (3.5-5.1) 06/01/25 06:07
BUN 8 mg/dl (9-20) L 06/01/25 06:07
Creatinine 0.7 mg/dL (0.7-1.3) 06/01/25 06:07
Glucose 95 mg/dl (70-99) 06/01/25 06:07
Troponins
05/30/25
17:49
Troponin I < 0.012
Vital Signs and I&O:
Vital Signs
Temp Pulse Resp BP Pulse Ox
98.6 F 62 16 116/50 94
06/01/25 07:30 06/01/25 07:30 06/01/25 07:30 06/01/25 07:30 06/01/25 07:30
Vital Signs
Temp Pulse Resp BP Pulse Ox
98.6 F 62 16 116/50 94
06/01/25 07:30 06/01/25 07:30 06/01/25 07:30 06/01/25 07:30 06/01/25 07:30
Intake & Output
05/30/25 05/31/25 06/01/25 06/02/25
06:59 06:59 06:59 06:59
Intake Total 1200 / 1200
Output Total 280 / 280 800 / 800
Balance -280 / -280 400 / 400
Physical Exam
Physical Exam
Well-appearing no acute distress
Regular rate and rhythm normal S1 and S2 no S3 no S4 degree 1/6 apical systolic murmur no rubs.
\\Lungs are clear to auscultation bilaterally
--- NOTE | 2025-06-01 14:36 | PTCARENOTE ---
Patient OOB with supervision to stretcher for MRCP. Patient tolerating clear liquid diet. No c/o pain. Daughter at bedside.
--- NOTE | 2025-06-01 14:39 | CON.GS ---
Medical History
-
Chief Complaint: Abdominal pain
History of Present Illness:
Patient is a 79 yo M with a PMH of HTN, A-fib (on Xarelto), nephrolithiasis, BPH, s/p L THR, s/p open appendectomy, s/p open LEFT inguinal hernia repair with mesh. Mr. Silver initially presented to on 05/30/2025 with generalized mid abdominal
pain. He states that he has been having abdominal discomfort on a weekly to biweekly basis for the past several months. Symptoms occur primarily at night. No clear association with fatty food intake. Most recent episode was more severe as well
as associated with a fever prompting presentation to the ED. He denies any jaundice, pale stools, or tea colored urine. Daughter notes looser foul-smelling stools. Over the past 48 hours he has been worked up and managed by his Hospitalist and GI
service. Concern for possible choledocholithiasis given a CT scan and ultrasound which demonstrated a dilated CBD. No evidence of cholecystitis on these imaging studies. Normal WBC, bilirubin, and LFTs. His symptoms have resolved and he is
currently tolerating a clear liquid diet. Plans were for discharge today. An MRI was obtained prior to discharge which demonstrated cholelithiasis with mild pericholecystic fluid and mild gallbladder wall thickening, no evidence of
choledocholithiasis, and mild narrowing near the ampulla.
Past Medical History
Past Medical History: Arrhythmias (Afib) and HTN
Past Surgical History: Appendectomy and Hernia Repair
Social History
Tobacco: Former Smoker
Alcohol: None
Drug: None
Family History
Family History: Reviewed & Noncontributory
Allergies / Home Medications
Allergy/AdvReac Type Severity Reaction Status Date / Time
No Known Allergies Allergy Unverified 05/30/25 17:10
�Medication �Instructions �Recorded �Confirmed �Type
amlodipine 10 mg-benazepril 40 mg 1 cap PO DAILY 05/30/25 05/30/25 History
capsule
metoprolol succinate 25 mg 25 mg PO DAILY 05/30/25 05/30/25 History
tablet,extended release 24 hr
(Toprol XL)
rivaroxaban 20 mg tablet (Xarelto) 20 mg PO QPM 05/30/25 05/30/25 History
tamsulosin 0.4 mg capsule (Flomax) 0.4 mg PO HS 05/30/25 05/30/25 History
Review of Systems
-
A 10 point review of systems was completed, and was negative except as per HPI.
Physical Exam
Vital Signs
Temp Pulse Resp BP Pulse Ox
98.9 F 59 16 121/51 96
06/01/25 11:45 06/01/25 11:45 06/01/25 11:45 06/01/25 11:45 06/01/25 11:45
05/31/25 06/01/25 06/02/25
06:59 06:59 06:59
Actual Weight 66.366 kg
Body Mass Index (BMI) 29.6
Lab Results
06/01/25 06:07
06/01/25 06:07
WBC 8.6 10^3/uL (4.8-10.8) 06/01/25 06:07
Hgb 12.5 g/dL (13.0-18.0) L 06/01/25 06:07
Hct 39.0 % (39.0-52.0) 06/01/25 06:07
Plt Count 197 10^3/uL (130-400) 06/01/25 06:07
Abs Immat Gran (auto) 0.0 10^3/uL (0-0.05) 05/30/25 17:49
Neutrophils % 84.2 % (42.2-75.2) H 05/30/25 17:49
Physical Exam
General: Well Developed, Well Nourished and No Apparent Distress
HEENT: Normocephalic and Anicteric
Respiratory: Non Labored Respirations
Cardiac: Irregular Rhythm
GI: Soft, Non Tender (Negative Renteria's sign), Non Distended, Incisions (well healed RLQ and LEFT groin incisions) and Other (Non-peritoneal)
Musculoskeletal: No Edema
Neuro: Nonfocal/Grossly Intact
Data Reviewed
-
CT Scan: Image Personally Visualized and interpreted and Report Reviewed by me
Ultrasound: Image Personally Visualized and interpreted and Report Reviewed by me
MRI: Image Personally Visualized and interpreted and Report Reviewed by me
Labs: Labs Reviewed by me
Old Records: Reviewed
Assessment / Plan
-
Patient is a 79 yo M p/w choledocholithiasis and possible chronic cholecystitis
Clinical improvement with no abdominal pain or discomfort and tolerating a clear liquid diet. In review of his workup and management including his labs, ultrasound, CT scan, and MRI he most likely had an episode of choledocholithiasis with passage
of a stone. Less likely to be primarily related to acute cholecystitis given his dilated CBD. MRI imaging demonstrates a more shrunken gallbladder with mild chronic wall thickening. He does have a large stone within the neck.
The natural history and pathophysiology of biliary and stone disease was discussed. Anatomy was reviewed utilizing pictorial images. Workup thus far was reviewed. Options for management including medical management with a low-fat diet versus
outpatient cholecystectomy versus cholecystectomy during this admission were considered and discussed. The pros and cons of all approaches was discussed. Specifically, we discussed the likelihood of future episodes of cholecystitis or possibly
choledocholithiasis or gallstone pancreatitis versus surgical risks.
We discussed a laparoscopic cholecystectomy with possible cholangiogram. The procedure itself, as well as the risks, benefits, and alternatives was discussed. Specifically, we discussed the risks of bleeding (slightly increased risk with Xarelto,
which would need to be held for 24-48 hours), infection, injury to surrounding structures (bowel, CBD), and need for open procedure. Typical postprocedural recovery including pain management, activity restrictions, and the 10 to 20% risks of
fluctuations in GI function were discussed.
Given what appears to be the chronicity of his symptoms, as well as his imaging studies with a larger stone within the neck would recommend cholecystectomy during this admission. Patient and his daughter do not wish to proceed with surgical
management at this time. This is not unreasonable given his complete symptom resolution. Discussed outpatient follow-up to coordinate and discuss potential elective cholecystectomy. All questions answered.
-- LFD
-- Dispo per Hospitalist
-- Outpatient follow-up if he wishes to proceed with cholecystectomy
--- NOTE | 2025-06-01 14:53 | W.DCSUMMARY ---
Addendum entered and electronically signed by Pastora Merrill MD 06/01/25 15:24:
Read, reviewed, and agree. See same day progress note for additional details. Time spent coordinating care, DC planning, review of DC plan of care with resident, transition of care, review of records in EMR, med rec, consults, notes, d/w
consultants, nursing, family, and CM = 33 minutes
Original Note:
Discharge Summary
Discharge Data
Date of Admission: 05/30/25
Date of Discharge: 06/01/25
-
Pending Results: No
Hospital Course
This is a 79 y/o male with pmhx of paroxysmal atrial fibrillation, essential hypertension and BPH who presented tot he ED on 05/30/2025 with abdominal pain and fever of 101F and chills which began the night prior. The morning before reporting to the
ED he did not take any of his medications, and in the ED he was found to be in afib with rapid ventricular response. He was given a dose of IV oppressor and converted back to normal sinus rhythm. Abdominal ultrasound showed cholelithiasis without
evidence of acute cholecystitis with mild intra and extra hepatic bile duct dilation. CT abdomen/pelvis showed intra-/extra- hepatic duct dilation without evidence of choledocholithiasis. Gastroenterology was consulted his abdominal pain. He did
have several asymptomatic paroxysms of atrial fibrillation since his admission, for which he was given IV oppressor and IV Cardizem. His MRI on 06/01/2025 showed evidence of possible cholecystitis with CBD dilation and a possible stricture. Surgery
was consulted, but patient was clinically well and declined surgery.
Once medically stable he was discharged to home on a low fat diet and instructed to follow up with his PCP and his wastewater analyst lab analyst in less than one week.
Discharge Plan
-
Patient Disposition: Home (Routine Discharge)
Discharge Diagnosis/Procedures: Cholelithiasis, Paroxysmal Atrial Fibrillation, Benign prostatic hyperplasia, Essential Hypertension
Diet: Low Fat
Activity: No restrictions
Driving Restrictions: As prior to admission
Referrals:
Perez Penaloza MD [Active, Gastroenterology] - in one to two weeks
NONE,* [Family Provider, Internal Medicine] - in less than 1 week
Referral Note:
Prescriptions:
Continued
tamsulosin [Flomax] 0.4 mg Capsule
0.4 mg PO HS
metoprolol succinate [Toprol XL] 25 mg Tablet Extended Release 24 Hr
25 mg PO DAILY
amlodipine-benazepril 10-40 mg Capsule
1 cap PO DAILY
Xarelto 20 mg Tablet
20 mg PO QPM
Discharge Orders:
Discharge Patient (As Directed); Ordered 06/01/25
Ordered By: Vika Arroyo
Discharge Date and Time
Print Language: MONGOLIAN
[2025-06-01 15:50] VITALS: BP 127/55
== END 2025-06-01 16:58 | disposition home or self-care (01) | DRG 445 ==
LOC: 3 WEST ACU 23:08
PROVIDERS: Physician Assistant Medical; ADMITTING PHYSICIAN Hospitalist; ATTENDING PHYSICIAN Internal Medicine; CONSULT PHYSICIAN Internal Medicine; CONSULT PHYSICIAN Internal Medicine Cardiovascular Disease; CONSULT PHYSICIAN Surgery; EMERGENCY PHYSICIAN Emergency Medicine
DX: K80.20 Calculus of gallbladder without cholecystitis without obstruction (principal); E87.1 Hypo-osmolality and hyponatremia; I11.9 Hypertensive heart disease without heart failure; I48.0 Paroxysmal atrial fibrillation; Z79.01 Long term (current) use of anticoagulants; Z87.891 Personal history of nicotine dependence; N40.0 Benign prostatic hyperplasia without lower urinary tract symptoms
CPT/HCPCS: 74177; 74183; 76700; 80053; 81003; 81015; 83605; 83690; 84443; 84484; 85025; 85027; 86803; 87040; 87086; 93005; 93306; 96361; 96374; 96375; 96376; 99285; A9575; Q9967

== ENCOUNTER 2025-06-02 15:45 | Inpatient (IN) | payer MEDICARE, SELFPAY ==
[2025-06-02] VITALS (10 sets, daily range): BP systolic 109–132; BP diastolic 54–83; BMI 22.0; BMI 21.2
[2025-06-02 12:28] LABS: Hematocrit 39.5 % (39.0-52.0); Hemoglobin 12.7 g/dL (13.0-18.0); Mean Corp Hgb Conc. 32.2 g/dL (33.0-37.0); Mean Corpuscular Volume 84.9 fL (80.0-94.0); Nucleated Red Blood Cells % 0 % (-); Platelet Count 188 10^3/uL (130-400); Red Cell Dist. Width 14.0 % (11.5-14.5)
--- NOTE | 2025-06-02 12:41 | ED.GENMED ---
History of Present Illness
General
Chief Complaint: Abdominal Pain
Source: patient
Exam Limitations: none
Time Seen by Provider: 06/02/25 11:40
Nursing documentation reviewed up to this point in time: agreed with
History of Present Illness
History of Present Illness:
79 y/o M with h/o AF on xarelto, metoprolol
recent admission 05/30-06/01 for abd pain secondary to cholelithaisis without cholecystitis that was complicated by AF with RVR, treated with IV bb and he would convert back to sinus but then with pain episodes would go back into AF
seen by surgery, recommended for GB removal but pt declined
he returns saying after eating chicken noodle soup last nigth he had more pain and felt his HR elevatea gain
he did not have fever/vomiting
pt's pain is controlled now
no diarrhea
Past History
Past History
ED Past Medical History: Arrthythmia and Other (BPH)
Social History
Tobacco: Non-smoker
Alcohol: None
Drug: None
Personal:
Review of Systems
Review of Systems
Allergies reviewed?: Yes
All Other Systems: Not applicable
Phy Exam
Physical Exam
Physical Exam:
GENERAL: Alert , in no apparent distress
EYE: pupils equal and reactive
NECK: Supple
ENT: o/p clr, mmm.
CARDIAC: irregularly irregular
LUNGS: Clear breath sounds bilaterally, no acute respiratory distress, no wheezes/rales/rhonchi
ABDOMEN: Soft, without focal tenderness, no r/g, no cvat, normal bowel sounds
NEUROLOGICAL: Alert and oriented, no focal neuro deficits
SKIN: Warm and dry, skin intact.
MUSCULOSKELETAL: No edema, well perfused. neg elinor's sign
PSYCH: Normal and appropriate interaction.
Course
Orders/Labs/Results
Orders:
Orders
06/02/25 11:48
US Abdomen Limited Urgent
Reason For Exam: cholelithiasis; eval cholecysitis
06/02/25 12:02
Complete Blood Count/With Diff Urgent
Comprehensive Metabolic Panel Urgent
Lipase Urgent
06/02/25 13:16
0.9% Sodium Chloride 250 ml [Nss] 250 ml IV BOLUS
Metoprolol [Lopressor] 5 mg IV NOW STA
06/02/25 13:27
Piperacillin/Tazo 3.375 Gram [Zosyn] 3.375 gram in 50 ml IV NOW
06/02/25 15:27
Admit/Transfer Patient As Directed
Co-Sign Provider:
Level of Care: Inpatient admission
Assign to:: IMU- Intermediate Care
Physician / Group: Dr. Edgar Oliveira/Hospitalists
Diagnosis: Gallstones, Atrial Fibrillation with Rapid Ventricular Response
Reason for Hospitalization: Gallstones, Atrial Fibrillation with Rapid Ventricular Response
Expected length of stay greater than two midnights?: Yes
ELOS- Estimated Length of Stay in days: 4
I certify the patient meets the requirements for IP care: Yes
06/02/25 15:29
Code Status As Directed
Resuscitation Status: Full Code
06/02/25 15:36
Electrocardiogram (*1) Routine
Reason for Study: Tachycardia
06/02/25 15:45
Diltiazem 125 mg/125 ml Nss [Cardizem] 125 mg in 125 ml IV PER PROTOCOL
Initial dose in mg/hr, then titrate:: 5
Titrate to keep:: Heart rate 80-100 bpm
Titrate by mg/hr:: 5 mg/hr
Frequency of titrations (minutes):: 15
Maximum dose in mg/hr:: 15
06/02/25 20:00
Piperacillin/Tazo 3.375 Gram [Zosyn] 3.375 gram in 50 ml IV Q6H
Abnormal Lab Results
06/02/25
12:02
RBC 4.65 L 10^6/uL
(4.70-6.10)
Hgb 12.7 L g/dL
(13.0-18.0)
MCHC 32.2 L g/dL
(33.0-37.0)
MPV 11.1 H fL
(7.4-10.4)
Absolute Neuts (auto) 6.6 H 10^3/uL
(1.4-6.5)
Absolute Monos (auto) 0.9 H 10^3/uL
(0.1-0.6)
Lymphocytes % 14.3 L %
(20.5-51.1)
Monocytes % 10.1 H %
(1.7-9.3)
Glucose 137 H mg/dl
(70-99)
Total Protein 5.8 L g/dl
(6.3-8.2)
Albumin 3.1 L g/dl
(3.5-5.0)
06/02/25 12:02
06/02/25 12:02
Vital Signs
Initial and Last Documented VS:
Initial Vital Signs
Temp Pulse Resp BP Pulse Ox
37.1 C 74 18 123/62 98
06/02/25 10:50 06/02/25 10:50 06/02/25 10:50 06/02/25 10:50 06/02/25 10:50
Last Documented Vital Signs
Temp Pulse Resp BP Pulse Ox
37.1 C 124 22 123/80 95
06/02/25 10:50 06/02/25 13:20 06/02/25 13:15 06/02/25 13:20 06/02/25 13:15
MDM/Problems Addressed
Differential Diagnosis Includes:
choelithiasis, cholecystitis, sepsis, AF with RVR
MDM/Problems Addressed:
79 y/o M PAF on xarelto
here 7/2-06/01 for cholelithiasis; had mri that did not show any choledocho; was given option for keron but declined
had pain return at 11 pm after eating soup a few hours before; pain resolved now but is back in rapid AF which was how he was during admission
no fever, wbc neg, lfts normal
US shows 1.1 cm gallstone in neck of the gb; no cholecystitis;
getting IV BB for AF;
d/w surgery who will see, pt will need keron; last dose AC last night
\\
*Pulse Oximetry
SaO2: 98
Oxygen Mode of Delivery: Room air
Patient hypoxic: no (95)
*Critical Care Note
Total Time (30-74mins, 75-104mins- exclusive of procedures): Not Applicable
ED Attending Note
-
Portions of this chart may have been created with voice recognition software.� Occasional wrong word or��sound alike� substitutions may have occurred due to the inherent limitations of voice recognition software.
Discharge Plan
Departure
Patient Disposition: Admit
Date of Disposition: 06/02/25
Time of Disposition: 13:21
Admit to: Telemetry
Presentation/result/management discussed w/ accepting MD/DO: Hospitalist
Condition: Fair
Covid-19: Not Applicable
Discharge Problem:
Gall stone, Atrial fibrillation with rapid ventricular response
Interventions
Interventions:
*Risk Screen - Suicide Last Done: 06/02/25 10:50
*General Assessment Last Done: 06/02/25 10:50
*Neglect/Abuse Screening Last Done: 06/02/25 11:59
*ED- Fall Risk Assessment Last Done: 06/02/25 11:59
*ED COVID-19 Vaccine History Last Done: 06/02/25 11:59
AE-Oklbkl-Slqhhhlcjo Assessment Last Done: 06/02/25 11:59
[2025-06-02 12:49] LABS: ALT (SGPT) 12 U/L (0-50); AST (SGOT) 20 U/L (17-59); Albumin 3.1 g/dl (3.5-5.0); Alkaline Phosphatase 49 U/L (38-126); Blood Urea Nitrogen 16 mg/dl (9-20); Calcium 8.9 mg/dl (8.4-10.2); Carbon Dioxide 27 mmol/L (22-30); Chloride 106 mmol/L (98-107); Estimated Creatinine Clearance 82 ml/min; Glucose 137 mg/dl (70-99); Lipase 153 U/L (23-300); Potassium 3.5 mmol/L (3.5-5.1); Sodium 137 mmol/L (135-145); Total Protein 5.8 g/dl (6.3-8.2); eGFR > 60.00
[2025-06-02] MEDS: LOPRESSOR 5 MG IV (13:20)
[2025-06-02] MEDS: NSS 250 IV (13:21)
--- NOTE | 2025-06-02 14:00 | PHANOTE ---
06/02/2025, pt. gets their meds. at a pharmacy in [place], [place]; pt. has no ecw records; was not able to confirm pt.'s vitamin D3 dose with another source; used pt.'s recent discharge paperwork to confirm the rest of pt.'s meds.
[2025-06-02] MEDS: ZOSYN 50 IV ×2 (14:11→19:26)
--- NOTE | 2025-06-02 14:38 | CON.GS ---
Addendum entered and electronically signed by Ahmet Soria MD 06/03/25 07:31:
Patient seen and examined. Agree with assessment plan as documented below. This note should be dated for 06/02/2025.
No significant changes from prior General Surgery consultation. Following discharge patient had a bowl of chicken noodle soup with recurrence of symptoms. Currently states that his pain is improved, though not completely resolved. No fevers.
Last dose of Eliquis was on the evening of 06/01.
Gen: NAD
Abd: soft, NT/ND, non-peritoneal
Labs and repeat ultrasound were reviewed
Patient is a 79 yo M p/w acute on chronic cholecystitis in the setting of a recent episode of choledocholithiasis
Previous discussions regarding the natural history and pathophysiology of biliary and stone disease. Previous recommendation for cholecystectomy. With his recurrence of symptoms, patient and family willing to proceed with cholecystectomy at this
time.
Plan for laparoscopic cholecystectomy with possible cholangiogram. The procedure itself, as well as the risks, benefits, and alternatives was discussed. Specifically, we discussed the risks of bleeding, infection, injury to surrounding structures
(bowel, bile ducts), CBD injury, need for open procedure. We discussed that given his delay in care he may have a more inflamed gallbladder with a more difficult operation necessitating partial cholecystectomy and/or drain placement. Typical
postprocedural recovery was discussed. All questions answered.
-- Laparoscopic cholecystectomy with possible cholangiogram, tentative plan for tomorrow afternoon
-- NPO, IVF
-- Cards consult noted
-- Hold all anticoagulation
-- Abx: Zosyn
Original Note:
Consultation
-
Date/Time Consultation Performed: 06/02/25 1420
Medical History
-
Chief Complaint: RUQ pain
History of Present Illness:
Mr Silver is a 79 yo male with h/o HTN, A-fib (on Xarelto LD 06/01/25 pm), nephrolithiasis, BPH, L THR, open appendectomy, open LEFT inguinal hernia repair with mesh who was recently admitted 05/30-06/01 with suspected passage of gallstone in
setting of chronic cholecystitis. He has had intermittent abdominal pain generalized to the mid abdomen over the past few months several times a week primarily at night. He experienced a fever in addition to these symptoms with recent episode
prompting presentation and admission. Afib RVR was noted during that admission with conversion back to sinus rhythm on beta kasey. MRI at that time with cholelithiasis but no choledocholithiasis. Shrunken gallbladder with mild chronic wall
thickening with a large stone within the neck noted. He was offered surgery at that time for cholecystectomy but declined. Diet was advanced and he was discharged to home with recommendation for outpatient follow up. He had chicken noodle soup last
night after going home with onset of pain once again later that night. He felt his HR becoming rapid once again and presents today for evaluation. He notes the pain is better currently with only mild tenderness on exam to the epigastrium into the
RUQ. He denies fevers or chills. He denies nausea or vomiting.
Past Medical History
Past Medical History: Arrhythmias (afib), HTN and Other (bph, nephrolithiasis)
Past Surgical History: Appendectomy, Hernia Repair (left inguinal) and Orthopedic (left THR)
Social History
Tobacco: Former Smoker
Alcohol: None
Family History
Family History: Reviewed & Not Pertinent
Allergies / Home Medications
Allergy/AdvReac Type Severity Reaction Status Date / Time
No Known Allergies Allergy Verified 06/02/25 10:50
�Medication �Instructions �Recorded �Confirmed �Type
amlodipine 10 mg-benazepril 40 mg 1 cap PO DAILY 05/30/25 06/02/25 History
capsule
metoprolol succinate 25 mg 25 mg PO DAILY 05/30/25 06/02/25 History
tablet,extended release 24 hr
(Toprol XL)
rivaroxaban 20 mg tablet (Xarelto) 20 mg PO QPM 05/30/25 06/02/25 History
tamsulosin 0.4 mg capsule (Flomax) 0.4 mg PO HS 05/30/25 06/02/25 History
Vit Eyes Supplement 1 tab PO DAILY 06/02/25 06/02/25 History
cholecalciferol (vitamin D3) 1,250 1,250 mcg PO SA 06/02/25 History
mcg (50,000 unit) capsule
cyanocobalamin (vitamin B-12) 1 tab PO DAILY 06/02/25 06/02/25 History
Review of Systems
-
History Source: Patient
All other systems: Negative unless noted
A 10 point review of systems was completed, and was negative except as per HPI.
Physical Exam
Vital Signs
Temp Pulse Resp BP Pulse Ox
98.8 F 124 22 123/80 95
06/02/25 10:50 06/02/25 13:20 06/02/25 13:15 06/02/25 13:20 06/02/25 13:15
06/01/25 06/02/25 06/03/25
06:59 06:59 06:59
Actual Weight 67.5 kg
Body Mass Index (BMI) 22.0
Lab Results
06/02/25 12:02
06/02/25 12:02
WBC 8.9 10^3/uL (4.8-10.8) 06/02/25 12:02
Hgb 12.7 g/dL (13.0-18.0) L 06/02/25 12:02
Hct 39.5 % (39.0-52.0) 06/02/25 12:02
Plt Count 188 10^3/uL (130-400) 06/02/25 12:02
Abs Immat Gran (auto) 0.0 10^3/uL (0-0.05) 06/02/25 12:02
Neutrophils % 73.8 % (42.2-75.2) 06/02/25 12:02
Physical Exam
General: Well Developed and Well Nourished
HEENT: Normocephalic and Moist Mucous Membranes
Respiratory: Non Labored Respirations
GI: Soft, Non Distended and Tender (mild to epigastrium and RUQ)
Skin: Warm and Dry
Neuro: Awake, Alert and AO x 3
Psych: Calm
Data Reviewed
-
CT Scan: Image Personally Visualized and interpreted, Report Reviewed by me, Discussed with Physician, Discussed with Patient and Discussed with Family
MRI: Image Personally Visualized and interpreted, Report Reviewed by me, Discussed with Physician, Discussed with Patient and Discussed with Family
Labs: Labs Reviewed by me, Discussed with Physician, Discussed with Patient and Discussed with Family
Old Records: Reviewed
Assessment / Plan
-
79 yo male h/o HTN, A-fib (on Xarelto LD 06/01/25 pm), nephrolithiasis, BPH, L THR, open appendectomy, open LEFT inguinal hernia repair with mesh who was recently admitted 05/30-06/01 with suspected passage of gallstone in setting of chronic
cholecystitis. Recent CT, US and MRI imaging with cholelithiasis and chronic gallbladder wall thickening with a large stone within the neck noted. No choledocholithiasis on recent MRCP. Pain returned with dietary advancement. Suspect recurrent
biliary colic vs acute on chronic cholecystitis. LFT's, lipase and WBC wnl. Tachycardia with afib, BP stable, no fevers.
Recommend laparoscopic cholecystectomy after Xarelto washout. Pt and daughter in agreement to move forward with surgery
Plan:
Continue NPO with sips of clears
Hold Xarelto in anticipation of surgery
Analgesics/antiemetics prn
C/W ABX empirically
OR timing TBD, tentatively tomorrow afternoon vs Wednesday pending OR availability
Medical management as per primary team
--- NOTE | 2025-06-02 15:13 | CON.GI ---
Consultation
-
Date/Time Consultation Requested: 06/02/25
Date/Time Consultation Performed: 06/02/25
Requesting Provider: Dania Bowie
Performing Provider: Dania Barry
Reason for Consultation: Cholecystitis
Medical History
Chief Complaint / HPI
Chief Complaint: cholecystitis
History of Present Illness:
Nabil Silver is a 79 y.o. male with pmhx afib on xarelto, nephrolithiasis, BPH, L THR, hx open appendectomy, hx open left inguinal repair with mesh who presents for recurrent abdominal pain following discharge last night for cholecystitis
following symptomatic improvement, suspected that he had passed a stone. Due to his anticoagulation, Dr. Soria offered cholecystectomy on Wednesday but since he felt well he decided to go home. He reports that he ate soup and immediately had return
of the abdominal pain, prompting him to return for evaluation. Last dose of xarelto was last night at 6 pm. Currently, has very minimal discomfort in LLQ of abdomen, denies any nausea or vomiting. MRI/MRCP on recent admission showed mildly dilated
CBD without evidence of choledocho, apparent mild narrowing of the distal CBD near ampulla, which could represent a small stricture. LFTs normal.
--Abdominal US 06/02/25: There is a 1.1 cm echogenic shadowing focus in the region of the neck of the gallbladder, compatible with a gallstone. The gallbladder is relatively contracted, similar appearance to recent CT and MRI examinations. The
gallbladder wall measures 2 mm. No evidence of pericholecystic edema. The patient has a negative sonographic Renteria's sign. The superior aspect of the common bile duct is visualized, measuring 3 mm. The mid to distal portion of the common bile duct
is unable to be visualized.
--Abdominal MRI 06/01/25:There is a 1.3 cm stone within the gallbladder neck. There is small volume pericholecystic fluid with some mild enhancement of the gallbladder wall which may represent acute cholecystitis.The common bile duct is mildly dilated
measuring 0.9 cm without evidence of choledocholithiasis. There is apparent mild narrowing of the distal common bile duct near the ampulla which may represent a small stricture. Mildly atrophic pancreas, normal caliber pancreatic duct.
--Abdominal US 05/30/25: Mild intrahepatic and extrahepatic biliary dilatation. The common bile duct measures 9 mm in diameter. An echogenic gallstone measures 1.1 x 0.9 x 1.3 cm. No gallbladder distention or pericholecystic fluid. The anterior
gallbladder wall measures 2-3 mm in thickness. The sonographic Renteria's sign was reportedly negative.
--CT A/P 05/30/25: Intrahepatic and extrahepatic bile duct dilatation. No appreciable choledocholithiasis by CT, but recommend correlation with laboratory values and MRCP/ERCP as clinically indicated. Possible cholelithiasis in the region of the
gallbladder neck.
Past Medical History
Past Medical History: Other (afib, htn, bph, kidney stones)
Past Surgical History: Other (hip and hernia repair)
Social History
Tobacco: Former Smoker
Family History
Family History: Reviewed & Not Pertinent
Allergies / Home Medications
Allergy/AdvReac Type Severity Reaction Status Date / Time
No Known Allergies Allergy Verified 06/02/25 10:50
�Medication �Instructions �Recorded
amlodipine 10 mg-benazepril 40 mg 1 cap PO DAILY 05/30/25
capsule
metoprolol succinate 25 mg 25 mg PO DAILY 05/30/25
tablet,extended release 24 hr
(Toprol XL)
rivaroxaban 20 mg tablet (Xarelto) 20 mg PO QPM 05/30/25
tamsulosin 0.4 mg capsule (Flomax) 0.4 mg PO HS 05/30/25
Vit Eyes Supplement 1 tab PO DAILY 06/02/25
cholecalciferol (vitamin D3) 1,250 1,250 mcg PO SA 06/02/25
mcg (50,000 unit) capsule
cyanocobalamin (vitamin B-12) 1 tab PO DAILY 06/02/25
Review of Systems
-
History Source: Patient and Family (daughter)
All other systems: A 12 pt ROS was Negative except as stated above in HPI
Vital Signs
Temp Pulse Resp BP Pulse Ox
98.8 F 124 22 123/80 95
06/02/25 10:50 06/02/25 13:20 06/02/25 13:15 06/02/25 13:20 06/02/25 13:15
Physical Exam
Exam
GENERAL: In no acute distress, appears comfortable
ABDOMEN: +BS; soft, nondistended, mildly TTP in LLQ of abdomen
Results
WBC 8.9 10^3/uL (4.8-10.8) 06/02/25 12:02
Hgb 12.7 g/dL (13.0-18.0) L 06/02/25 12:02
Hct 39.5 % (39.0-52.0) 06/02/25 12:02
MCV 84.9 fL (80.0-94.0) 06/02/25 12:02
Plt Count 188 10^3/uL (130-400) 06/02/25 12:02
Absolute Neuts (auto) 6.6 10^3/uL (1.4-6.5) H 06/02/25 12:02
Sodium 137 mmol/L (135-145) 06/02/25 12:02
Potassium 3.5 mmol/L (3.5-5.1) 06/02/25 12:02
Chloride 106 mmol/L (98-107) 06/02/25 12:02
Carbon Dioxide 27 mmol/L (22-30) 06/02/25 12:02
BUN 16 mg/dl (9-20) 06/02/25 12:02
Creatinine 0.7 mg/dL (0.7-1.3) 06/02/25 12:02
Calcium 8.9 mg/dl (8.4-10.2) 06/02/25 12:02
Total Bilirubin 0.7 mg/dl (0.2-1.3) 06/02/25 12:02
AST 20 U/L (17-59) 06/02/25 12:02
ALT 12 U/L (0-50) 06/02/25 12:02
Alkaline Phosphatase 49 U/L (38-126) 06/02/25 12:02
Lipase 153 U/L (23-300) 06/02/25 12:02
Diagnostic Image Results:
Prior GI Procedures:
EGD:
Colonoscopy:
Assessment / Plan
-
79 y.o. with suspected acute on chronic cholecystitis with mild CBD dilation and possible stricture. Planning for cholecystectomy during current admission.
Clinically, patient is stable and has minimal tenderness on exam without nausea or vomiting. Seen by surgery, plan for cholecystectomy either tomorrow or Wednesday following Xarelto washout. The MRI that he received yesterday prior to his discharge
did not show any evidence of choledocholithiasis however it demonstrated a mildly dilated CBD as well as some apparent mild narrowing of the distal CBD near the ampulla, question of whether or not this represents a small stricture. He does have
evidence of a small periampullary diverticulum seen on his initial CT scan on recent admission, which could account for these findings (external compression), katey. given normal LFTs.
-NPO
-hold xarelto
-Continue with zosyn
-timing of cholecystectomy TBD, will attempt to perform IOC
-no plans for endoscopic intervention at this time, may warrant further assessment based on cholangiogram
-Will follow peripherally
Data Reviewed
-
CT Scan: Report Reviewed by me
Ultrasound: Report Reviewed by me
MRI: Report Reviewed by me
Old Records: Reviewed
-
-
Thank you for consultation and allowing me to participate in the patient's care. Please call the risk control officer GI physician during the after hours with any questions or concerns.
--- NOTE | 2025-06-02 15:56 | HPS.HSE ---
Addendum entered and electronically signed by Edgar Oliveira MD 06/02/25 16:29:
Last Xarelto dose was 6 pm on 06/01/25.
Original Note:
Family Physician
-
Family Physician: NOT KNOW UNKNOWN - PT DOES
Chief Complaint
-
Abdominal Pain
History of Present Illness
79 y/o male with past medical history of paroxysmal atrial fibrillation (on Xarelto at home), essential hypertension and benign prostatic hyperplasia, who presented with abdominal pain. Patient was just discharged yesterday after being hospitalized
from 05/30/25 to 06/01/25 for abdominal pain secondary to cholecystitis and atrial fibrillation with RVR, at that time patient was offered surgery but since he felt well, he declined surgery and wanted to go home. Today, he returned to the hospital
saying that after eating chicken noodle soup last night, he had more abdominal pain and felt that his heart rate was fast again. He denied having any other symptoms whatsoever -- no fever, chills, nausea, vomiting or diarrhea etc.
Medical History
Past Medical History
Past Medical History: Reports Other (As per HPI above)
Past Surgical History: Reports Orthopedic (Left Hip Replacement) and Other (Hernia Repair)
Social History
Tobacco: Former Smoker
Alcohol: None
Drug: None
Family History
Family History: Not pertinent
Allergies / Home Medications
Allergies reflects when Allergies were last updated in [facility].
Home Medications with original date entered in [facility]
Allergy/Medication List:
Allergies
Allergy/AdvReac Type Severity Reaction Status Date / Time
No Known Allergies Allergy Verified 06/02/25 10:50
Home Medications
amlodipine 10 mg-benazepril 40 mg capsule 1 cap PO DAILY 05/30/25
metoprolol succinate 25 mg tablet,extended release 24 hr (Toprol XL) 25 mg PO DAILY 05/30/25
rivaroxaban 20 mg tablet (Xarelto) 20 mg PO QPM 05/30/25
tamsulosin 0.4 mg capsule (Flomax) 0.4 mg PO HS 05/30/25
Vit Eyes Supplement 1 tab PO DAILY 06/02/25
cholecalciferol (vitamin D3) 1,250 mcg (50,000 unit) capsule 1,250 mcg PO SA 06/02/25
cyanocobalamin (vitamin B-12) 1 tab PO DAILY 06/02/25
Review of Systems
-
A 12 point ROS was completed and negative except as noted: Yes
Physical Exam
Vital Signs
Vital Signs
Temp Pulse Resp BP Pulse Ox
98.8 F 124 22 123/80 95
06/02/25 10:50 06/02/25 13:20 06/02/25 13:15 06/02/25 13:20 06/02/25 13:15
Physical Exam
General: No Apparent Distress, Comfortable and Conversant
HEENT: NormoCephalic and Moist mucous membranes
Respiratory: Clear
Cardiac: S1/S2, Irregular Rhythm and Tachycardia
GI: Soft, Normal Bowel Sounds and Tender (Mild RUQ tenderness)
Musculoskeletal: No Cyanosis
Skin: Warm and Dry
Neuro: Awake, Alert, AO x 3 and Nonfocal/grossly intact
Psych: Calm and Intact Judgment/Insight
Laboratory Results
-
06/02/25 12:02
06/02/25 12:02
Laboratory Results
Total Bilirubin 0.7 mg/dl (0.2-1.3) 06/02/25 12:02
AST 20 U/L (17-59) 06/02/25 12:02
ALT 12 U/L (0-50) 06/02/25 12:02
Alkaline Phosphatase 49 U/L (38-126) 06/02/25 12:02
Lipase 153 U/L (23-300) 06/02/25 12:02
Impression/Plan
-
Assessment/Plan
Presentation with abdominal pain secondary to gallstone
1.1 cm gallstone in the region of the neck of the gallbladder
-NPO except meds, sips of clears and ice chips
-AST, ALT and Bili are okay at the time of admission --> will follow these labs
-Continue Zosyn
-General surgery onboard
-ER physician consulted gastroenterology
Atrial Fibrillation with Rapid Ventricular Response suspected from abdominal pain and gallstone
-HR very high in the ER going into 150s-160s
-Ordered Cardizem Drip (patient's recent ECHO EF was acceptable so can do Cardizem Drip)
-Admit to IVU so Cardizem Drip can be titrated if needed (tight bed situation in IMU and patient does not absolutely need IMU)
-Cardiology consulted -- last admission earlier this month, [facility] cardio saw patient for the same reason
Paroxysmal atrial fibrillation (on Xarelto at home)
-Hold Xarelto at this time
-Continue Cardizem Drip/beta kasey as above
Essential Hypertension
-SBP is 109 to 120s in the ER
-Hold Amlodipine-Benazepril for now to avoid potential hypotension while monitoring blood pressure
-Cardizem Drip
-Continued home Toprol XL 25 mg
Benign prostatic hyperplasia
-Continue Flomax
DVT Prophylaxis: Lovenox subq
Code Status: Full Code
[2025-06-02] MEDS: CARDIZEM 125 IV (16:06)
--- NOTE | 2025-06-02 18:32 | PTCARENOTE ---
Patient admitted to IVU. AO x3. Cardizem gtt at 15mg/hr, A-Fib 130-140's, BP 132/70. 1 out 10 abdomen pain, last bowel movement 05/30/25, abdomen soft and mildly tender. NPO, IVF. Oriented to room and call carrion placed in reach
[2025-06-02] MEDS: LR 1000 IV (18:46)
[2025-06-02] MEDS: LOVENOX 40 MG SC (19:26)
--- NOTE | 2025-06-02 19:29 | CON.CAR ---
Consultation
Consultation Request
Date/Time Consultation Requested: 06/02/2025 15: 00
Date/Time Consultation Performed: 06/02/2025 19: 15
Requesting Provider: Roxanne
Performing Provider: Dorian
Reason for Consultation: Abdominal pain
Medical History
-
Chief Complaint: abd pain
History of Present Illness:
Nabil has past medical history of hypertension, paroxysmal atrial fibrillation on chronic Xarelto, BPH and presented to [facility] on 05/30/25 for evaluation of abd pain. He was found to have cholecystitis and atrial fibrillation. He spontaneously converted
to sinus rhythm and was discharged on 06/01/2025. He presents with recurrent abdominal pain and found to be in atrial fibrillation. He denies chest pain, short breath, or palpitations. Cholecystectomy is planned during this admission and Eliquis is
on hold
He is followed by a astro technician/PCP in [facility], which is where they used to live until he came to live with her daughter several years ago in [place]. They continue to travel to [place] to see him every 3 months.
PMH:
Paroxysmal atrial fibrillation
Chronic anticoagulation with Xarelto
Hypertension
History of possible CVA which daughter reports was noted on a prior scan
BPH
Past Medical History
Past Medical History: Other (in HPI)
Past Surgical History: Appendectomy and Other (Hernia repair left inguinal and left total hip replacement)
Social History
Tobacco: Former Smoker
Alcohol: None
Personal:
Living: With Family
Family History
Family History: Early CAD (in father, mother had heart issues but lived to 99 yo)
Allergies / Home Medications
Allergy/AdvReac Type Severity Reaction Status Date / Time
No Known Allergies Allergy Verified 06/02/25 18:17
�Medication �Instructions �Recorded �Confirmed �Type
amlodipine 10 mg-benazepril 40 mg 1 cap PO DAILY 05/30/25 06/02/25 History
capsule
metoprolol succinate 25 mg 25 mg PO DAILY 05/30/25 06/02/25 History
tablet,extended release 24 hr
(Toprol XL)
rivaroxaban 20 mg tablet (Xarelto) 20 mg PO QPM 05/30/25 06/02/25 History
tamsulosin 0.4 mg capsule (Flomax) 0.4 mg PO HS 05/30/25 06/02/25 History
Vit Eyes Supplement 1 tab PO DAILY 06/02/25 06/02/25 History
cholecalciferol (vitamin D3) 1,250 1,250 mcg PO SA 06/02/25 06/02/25 History
mcg (50,000 unit) capsule
cyanocobalamin (vitamin B-12) 1 tab PO DAILY 06/02/25 06/02/25 History
Review of Systems
-
History Source: Patient
All other systems: Negative unless noted
Constitutional: No Symptoms
EENT: No Symptoms
Respiratory: No Symptoms
Cardiac: No Symptoms
Abdomen/GI: Pain
: No Symptoms
Musculoskeletal: No Symptoms
Skin: No Symptoms
Neurological: No Symptoms
Endocrine: No Symptoms
Hematologic/Lymphatic: No Symptoms
Physical Exam
Vital Signs
Temp Pulse Resp BP Pulse Ox
98.3 F 98 16 132/70 98
06/02/25 18:36 06/02/25 19:15 06/02/25 18:36 06/02/25 18:01 06/02/25 18:36
Lab Results
General: Well developed, well nourished in NAD.
Neck: Supple, no JVD, HJR, carotids +2 B/L, no bruits bilaterally.
Heart: Non displaced PMI, irregular, no murmurs, No S3, S4, no rubs.
Lungs: Clear to auscultation bilaterally, no wheeze, rhonchi, rubs bilaterally,
normal expiratory phase.
Extremities: No clubbing, cyanosis or edema bilaterally.
Neuro: Grossly nonfocal, awake, alert and oriented x3.
06/02/25 12:02
06/02/25 12:02
Impression / Plan
-
Primary Purse Seiner/PCP: Dr. Marco Balderas of [facility]
Primary Purse Seiner/PCP: Dr. Marco Balderas of [facility]
Presented to ER with abdominal discomfort on 05/30/2025 and was in A-fib with spontaneously converted to sinus rhythm. Readmitted 06/02/2025 with abdominal pain and recurrent atrial fibrillation
Assessment:
Presentation with abd pain
Recurrent paroxysmal atrial fibrillation
Chronic anticoagulation with Xarelto
Hypertension
History of possible CVA which daughter reports was noted on a prior scan, patient asymptomatic
BPH
ECHO 05/31/25: Normal left ventricular size and function with ejection fraction of 55 to 60%. No significant valvular disease. No prior echocardiogram for comparison
TSH is normal at 1.57
Plan:
He presents with recurrent A-fib in the setting of abdominal pain 1 day after being discharged in sinus rhythm
Plan is for cholecystectomy and anticoagulation is on hold
Will continue rate control of A-fib current time
Await surgical clearance to restart Xarelto
If remains in A-fib could consider outpatient cardioversion
Discussed with patient and daughter at bedside
Data Reviewed
-
EKG: Tracing Personally Visualized and interpreted
Radiology: Report Reviewed by me
Ultrasound: Report Reviewed by me
MRI: Report Reviewed by me
Medical Tests (Nuc Med, Echo etc): Report Reviewed by me
Labs: Labs Reviewed by me
Old Records: Reviewed
--- NOTE | 2025-06-02 21:48 | PTCARENOTE ---
Received patient at change of shift. Afib with a BBB on the monitor, HR in the 90-100s. Cardizem running as per protocol, see documentation. NPO. No complaints from pt at this time, call carrion within reach.
[2025-06-02] MEDS: FLOMAX 0.4 MG PO (22:06)
[2025-06-03] VITALS (17 sets, daily range): BP systolic 90–137; BP diastolic 47–75
[2025-06-03] MEDS: CARDIZEM 125 IV ×2 (00:30→13:39)
[2025-06-03] MEDS: ZOSYN 50 IV ×4 (02:06→19:21)
[2025-06-03 02:28] LABS: Hematocrit 36.9 % (39.0-52.0); Hemoglobin 12.3 g/dL (13.0-18.0); Mean Corp Hgb Conc. 33.3 g/dL (33.0-37.0); Mean Corpuscular Volume 84.1 fL (80.0-94.0); Platelet Count 192 10^3/uL (130-400); Red Cell Dist. Width 13.6 % (11.5-14.5)
[2025-06-03 03:13] LABS: ALT (SGPT) < 10 U/L (0-50); AST (SGOT) 18 U/L (17-59); Albumin 2.9 g/dl (3.5-5.0); Alkaline Phosphatase 50 U/L (38-126); Blood Urea Nitrogen 12 mg/dl (9-20); Calcium 8.6 mg/dl (8.4-10.2); Carbon Dioxide 23 mmol/L (22-30); Chloride 109 mmol/L (98-107); Estimated Creatinine Clearance 79 ml/min; Glucose 98 mg/dl (70-99); Magnesium 1.8 mg/dl (1.6-2.3); Potassium 3.5 mmol/L (3.5-5.1); Sodium 137 mmol/L (135-145); Total Protein 5.5 g/dl (6.3-8.2); eGFR > 60.00
[2025-06-03] MEDS: LR 1000 IV ×2 (04:42→14:00)
--- NOTE | 2025-06-03 07:26 | W.PN.HOSP.TC ---
Addendum entered and electronically signed by Pastora Merrill MD 06/03/25 18:57:
I saw and evaluated the patient independently. I reviewed the resident�s note and agree with findings and plan as documented by Dr. Abdi.
GENERAL: well developed, well nourished, male in no apparent distress
HEENT: NC/AT--no O2 requirements
HEART: irreg irreg but no longer tachycardic
LUNGS : clear to auscultation bilaterally
ABDOM: soft, nontender, nondistended, + bowel sounds
EXT: no cyanosis, clubbing, or edema
NEUROLOGIC: grossly intact
acute cholecystitis--confirmed by MRI--pt did not do well at home after eating chicken noodle soup--refused surgery last admission (2 days ago)--s/p lap keron 06/03/25--apprec surgery--cont zosyn---cont IVF
Paroxysmal Atrial Fibrillation--pt uncontrolled and tachycardic--needed cardizem drip again--apprec cards--metoprolol and xarelto on hold for surgery
Essential Hypertension--Continue amlodipine-benzepril as clinically able
BPH-Continue tamsulosin
DVT proph
code status--full code
Original Note:
Today's Communication/Plan
-
Continue Zosyn
Patient scheduled for upcoming cholecystectomy
Holding Xarelto until postprocedure and after surgical clearance
Follow AST ALT and bilirubin postprocedure
N.p.o. except for meds until postprocedure
Assessment / Plan
Assessment / Plan
Assessment and plan:
- Acute cholecystitis secondary to choledocholithiasis: Unresolved
Abdominal ultrasound conducted on 06/02/2025 showed a 1.1 cm gallstone in the region of the neck of the gallbladder. The gallbladder slightly contracted although similar appearance to recent CT and MRI examinations. Negative sonographic Renteria sign
Zosyn given prior to scheduled cholecystectomy
General surgery on board and scheduled for cholecystectomy
Follow AST ALT and bilirubin
Patient n.p.o. prior to procedure
Continue current pain control
IV fluid support
- Recurrent paroxysmal atrial fibrillation: Monitoring
Was in atrial fibrillation in the emergency department
Cardiology consulted -appreciate cardiology recommendations
Continue current Cardizem for rate control
Holding Xarelto until surgical clearance postprocedure -last dose was at 6 PM on 06/01/2025
Cardiology considering outpatient cardioversion if patient remains in atrial fibrillation
- Essential hypertension: Monitoring
Systolic blood pressure was 109 to the 120's in the ER
Holding antihypertensive medications until postprocedure
Continue home Toprol-XL 25 mg
- Benign prostatic hyperplasia: Stable
Continue tamsulosin
Anticipated Discharge: 24 - 48 hours
Subjective/Interval History
-
Date of Service: June 03, 2025
Met with patient at the bedside. He is calm and laying in bed awaiting surgery. He is aware of the risks and benefits of the procedure. He hopes that the procedure goes well and will be the answer to his ongoing pain. He states that the current
medications that are being used to treat his pain in the hospital are effective in treating that pain.
Objective Data
-
Labs:
Labs
06/03/25 02:18
06/03/25 02:18
Vital Signs:
Vital Signs
Temp Pulse Resp BP Pulse Ox
98.2 F 99 20 137/63 95
06/03/25 11:37 06/03/25 14:00 06/03/25 11:37 06/03/25 12:40 06/03/25 11:38
Review of Systems
-
History Source: Patient
All other systems: Reviewed and negative
Constitutional: Reports No Symptoms
EENT: Reports No Symptoms Reported
Respiratory: Reports No Symptoms
Cardiac: Reports No Symptoms
Abdomen/GI: Reports No Symptoms
Breast: Reports No Symptoms
Genitourinary: Reports No Symptoms
Musculoskeletal: Reports No Symptoms
Skin: Reports No Symptoms
Neuro: Reports No Symptoms
Endocrine: Reports No Symptoms
Physical Exam
-
General: Well Developed, Well Nourished and No Apparent Distress
HEENT: Normocephalic and Atraumatic
Respiratory: Clear to Auscultation
Cardiac: Regular Rhythm and S1/S2
Breast: Deferred by me
GI: Soft, Nontender, Nondistended and Normal Bowel Sounds
Skin: Warm, Dry and Normal Turgor; Negative Rash, Ulcers or Lesions
Neuro: Awake, Alert, Oriented and AO x 3
Psych: Calm
[2025-06-03 09:04] LABS: Troponin I < 0.012 ng/ml
--- NOTE | 2025-06-03 09:10 | W.PN.CARDCBS ---
Today's Communication / Plan
-
He is okay for cholecystectomy without further testing
Continue IV Cardizem for A-fib
Await surgical clearance to restart Xarelto
Impression / Plan
-
Primary Supervisor Pig Machine/PCP: Dr. Marco Balderas of [facility]
Primary Supervisor Pig Machine/PCP: Dr. Marco Balderas of [facility]
Presented to ER with abdominal discomfort on 05/30/2025 and was in A-fib with spontaneously converted to sinus rhythm. Readmitted 06/02/2025 with abdominal pain and recurrent atrial fibrillation
Assessment:
Presentation with abd pain/cholecystitis
Recurrent paroxysmal atrial fibrillation
Chronic anticoagulation with Xarelto
Hypertension
History of possible CVA which daughter reports was noted on a prior scan, patient asymptomatic
BPH
ECHO 05/31/25: Normal left ventricular size and function with ejection fraction of 55 to 60%. No significant valvular disease. No prior echocardiogram for comparison
TSH is normal at 1.57
Plan:
He is okay for cholecystectomy surgery without further testing
Remains in A-fib with rapid heart rate at times
Continue IV Cardizem
Await surgical clearance to restart Xarelto
If remains in A-fib could consider outpatient cardioversion
Discussed with patient and daughter at bedside
Progress Note - Supervisor Pig Machine
Subjective
Date of Service: June 03, 2025
No complaints
Objective
Labs:
06/03/25 02:18
06/03/25 02:18
Labs
Hgb 12.3 g/dL (13.0-18.0) L 06/03/25 02:18
Hct 36.9 % (39.0-52.0) L 06/03/25 02:18
Plt Count 192 10^3/uL (130-400) 06/03/25 02:18
Sodium 137 mmol/L (135-145) 06/03/25 02:18
Potassium 3.5 mmol/L (3.5-5.1) 06/03/25 02:18
BUN 12 mg/dl (9-20) 06/03/25 02:18
Creatinine 0.7 mg/dL (0.7-1.3) 06/03/25 02:18
Glucose 98 mg/dl (70-99) 06/03/25 02:18
Troponins
06/03/25
08:21
Troponin I < 0.012
Vital Signs and I&O:
Vital Signs
Temp Pulse Resp BP Pulse Ox
98.9 F 96 18 113/69 95
06/03/25 02:11 06/03/25 03:30 06/03/25 02:11 06/03/25 02:11 06/03/25 02:11
Vital Signs
Temp Pulse Resp BP Pulse Ox
98.9 F 96 18 113/69 95
06/03/25 02:11 06/03/25 03:30 06/03/25 02:11 06/03/25 02:11 06/03/25 02:11
Physical Exam
Physical Exam
General: Well developed, well nourished in NAD.
Neck: Supple, no JVD, HJR, carotids +2 B/L, no bruits bilaterally.
Heart: Non displaced PMI, irregular, no murmurs, No S3, S4, no rubs.
Lungs: Clear to auscultation bilaterally, no wheeze, rhonchi, rubs bilaterally,
normal expiratory phase.
Extremities: No clubbing, cyanosis or edema bilaterally.
Neuro: Grossly nonfocal, awake, alert and oriented x3.
[2025-06-03] MEDS: OCUVITE SOFTGEL 1 CAP PO (09:11)
[2025-06-03] MEDS: VITAMIN B-12 100 MCG PO (09:12)
[2025-06-03] MEDS: TOPROL XL 25 MG PO (09:12)
--- NOTE | 2025-06-03 12:46 | W.SUR.PREOP ---
Pre-Operative Surgical Note
-
I have examined this patient prior to the performance of the scheduled procedure.
The patient's condition is unchanged from the time of the current History and
Physical and the patient is able to undergo the scheduled procedure.
--- NOTE | 2025-06-03 14:20 | PTCARENOTE ---
report called. pt off unit for surgery.
--- NOTE | 2025-06-03 16:19 | W.IMMPOSTOP ---
Addendum entered and electronically signed by Ahmet Soira MD 06/03/25 18:28:
Correction:
Specimen / Cultures:
1. Portion of gallbladder and stone
Original Note:
Surgical Immed Post Op Note
-
Primary Surgeon: Estella
Assisting Surgeon: TRACI Lamar
Pre-op Diagnosis: Acute on chronic cholecystitis
Post-op Diagnosis: Acute on chronic cholecystitis
Procedure Performed: Laparoscopic subtotal fenestrating cholecystectomy, laparoscopic [id number]
Anesthesia Type: General
Specimen / Cultures:
1. Appendix
Estimated Blood Loss: 11 cc
Complications: None
Operative Findings:
1. Severe chronic inflammation with transverse colon and duodenum draped onto GB
2. Top down cholecystectomy removing 50% of GB with inability to remove inferior aspect due to severe inflammation
3. Stone removed, mucosa ablated, duct unable to be clearly identified, no leakage of bile
4. 19 Fr Alvino drain into operative field
[2025-06-03] MEDS: ZOFRAN 4 MG IV (17:00)
[2025-06-03] MEDS: COMPAZINE 5 MG IV (17:23)
--- NOTE | 2025-06-03 19:05 | PTCARENOTE ---
pt back from procedure. pt c/o of nausea. Educated on plan of care for the evening and pt verbalized understanding. incision sites are CDI. ZANE drain is draining sanguineous drainage. daughter and at bedside visiting. pt on 2LO2 96%, vss. call
carrion within reach.
[2025-06-03] MEDS: DILAUDID 0.5 MG IV (19:21)
[2025-06-03] MEDS: LOVENOX SC (19:36)
[2025-06-03] MEDS: FLOMAX 0.4 MG PO (20:49)
--- NOTE | 2025-06-03 21:05 | PTCARENOTE ---
19:00 Pt's daughter asking for pain meds for her father. Stated ' He is in a lot of pain. He said he's going to '. Pt in bed sleeping without any distress at that time. Nurse had to shake pt. to wake him up. Pt stated his pain 9/10. PRN Dilaudid
given.
19:45 Pt asleep without any distress noted. On pain assessment pt stated that his pain is 'good' and rated as 8/10. Pt was able to tolerated water and Jello.
21:00 Pt converted to NSR with HR 60-70. EKG done
[2025-06-04] VITALS (13 sets, daily range): BP systolic 101–133; BP diastolic 55–74
[2025-06-04 00:41] LABS: Hematocrit 35.7 % (39.0-52.0); Hemoglobin 11.8 g/dL (13.0-18.0); Mean Corp Hgb Conc. 33.1 g/dL (33.0-37.0); Mean Corpuscular Volume 84.2 fL (80.0-94.0); Platelet Count 201 10^3/uL (130-400); Red Cell Dist. Width 13.5 % (11.5-14.5)
[2025-06-04 01:05] LABS: ALT (SGPT) 16 U/L (0-50); AST (SGOT) 31 U/L (17-59); Albumin 2.9 g/dl (3.5-5.0); Alkaline Phosphatase 49 U/L (38-126); Blood Urea Nitrogen 16 mg/dl (9-20); Calcium 8.2 mg/dl (8.4-10.2); Carbon Dioxide 17 mmol/L (22-30); Chloride 105 mmol/L (98-107); Estimated Creatinine Clearance 69 ml/min; Glucose 171 mg/dl (70-99); Magnesium 2.0 mg/dl (1.6-2.3); Potassium 4.0 mmol/L (3.5-5.1); Sodium 136 mmol/L (135-145); Total Protein 5.3 g/dl (6.3-8.2); eGFR > 60.00
[2025-06-04] MEDS: ZOSYN 50 IV ×4 (03:12→19:45)
[2025-06-04] MEDS: LR 1000 IV ×2 (06:00→16:07)
[2025-06-04] MEDS: CARDIZEM 125 IV ×2 (06:09→15:58)
--- NOTE | 2025-06-04 07:44 | W.PN.HOSP.TC ---
Today's Communication/Plan
-
Continuing to hold Xarelto postoperatively -scheduled to go to the OR
Patient remains n.p.o. for tentative ERCP today with gastroenterology -possible need for stent to prevent bile leak
Continue Cardizem for rate control
Assessment / Plan
Assessment / Plan
Assessment and plan:
- Acute cholecystitis secondary to choledocholithiasis: Unresolved
Abdominal ultrasound conducted on 06/02/2025 showed a 1.1 cm gallstone in the region of the neck of the gallbladder. The gallbladder slightly contracted although similar appearance to recent CT and MRI examinations. Negative sonographic Renteria sign
Zosyn given prior to scheduled cholecystectomy
General surgery on board and scheduled for cholecystectomy
Follow AST ALT and bilirubin
Patient remains n.p.o. prior to second procedure
Analgesics as needed
IV fluid support
Patient scheduled for tentative ERCP today with gastroenterology -they anticipate a need for stent to prevent bile leak
Patient has a ZANE drain which will remain in place for approximately 1 week -currently draining blood-tinged serosanguineous fluid
- Recurrent paroxysmal atrial fibrillation: Monitoring
Was in atrial fibrillation in the emergency department
Cardiology consulted -appreciate cardiology recommendations
Continue Cardizem for rate control
Holding Xarelto until surgical clearance postprocedure -last dose was at 6 PM on 06/01/2025
Cardiology considering outpatient cardioversion if patient remains in atrial fibrillation
- Essential hypertension: Monitoring
Systolic blood pressure was 109 to the 120's in the ER
Holding antihypertensive medications until postprocedure
Continue home Toprol-XL 25 mg
- Benign prostatic hyperplasia: Stable
Continue tamsulosin
Anticipated Discharge: Within 24 hours
Subjective/Interval History
-
Date of Service: June 04, 2025
Patient is doing well postoperatively. He was seen laying in bed resting comfortably. He offers no complaints at the present time. He states that he does not like to complain and his daughter mentioned that he has fears about his upcoming
procedure. Reassurance and supportive counseling provided at the bedside.
Objective Data
-
Labs:
Laboratory Results
06/04/25
00:31
WBC 6.7
Hgb 11.8 L
Hct 35.7 L
Plt Count 201
Sodium 136
Potassium 4.0
Chloride 105
Carbon Dioxide 17 L
BUN 16
Creatinine 0.8
Glucose 171 H
Calcium 8.2 L
Total Bilirubin 0.8
AST 31
ALT 16
Alkaline Phosphatase 49
Vital Signs:
Vital Signs
Temp Pulse Resp BP Pulse Ox
97.5 F 76 20 113/55 97
06/04/25 07:23 06/04/25 07:23 06/04/25 07:23 06/04/25 04:00 06/04/25 07:23
I&O
06/03/25 06/04/25 06/05/25
06:59 06:59 06:59
Intake Total 1745 / 1745
Output Total 340 / 340
Balance 1405 / 1405
Review of Systems
-
History Source: Patient
Constitutional: Reports No Symptoms
EENT: Reports No Symptoms Reported
Respiratory: Reports No Symptoms
Cardiac: Reports No Symptoms
Abdomen/GI: Reports No Symptoms
Breast: Reports No Symptoms
Genitourinary: Reports No Symptoms
Musculoskeletal: Reports No Symptoms
Skin: Reports No Symptoms
Neuro: Reports No Symptoms
Endocrine: Reports No Symptoms
Hematologic / Lymphatic: Reports No Symptoms
Psych: Reports Anxious
Physical Exam
-
General: Well Developed, Well Nourished and No Apparent Distress
HEENT: Normocephalic, Atraumatic and Moist Mucous Membranes
Respiratory: Clear to Auscultation; Negative Wheezes, Rales, Rhonchi or Crackles
Cardiac: Irregular Rhythm and Tachycardic
GI: Soft, Tender and Other (Surgical wound over site of gallbladder, laparoscopic port incisions without any obvious signs of erythema or infection, ZANE tube draining blood-tinged fluid)
Rectal: Deferred by Provider
Genito-urinary: Deferred by me
Musculoskeletal: No Clubbing, No Cyanosis and No Edema
Skin: Warm, Dry and Other (Surgical wound over site of gallbladder, laparoscopic port incisions without any obvious signs of erythema or infection, ZANE tube draining blood-tinged fluid)
Neuro: Awake, Alert, Oriented and AO x 3
Psych: Calm (Presents is calm but is actually anxious, slightly tearful) and Anxious
[2025-06-04] MEDS: TOPROL XL 25 MG PO ×2 (08:44→19:46)
[2025-06-04] MEDS: VITAMIN B-12 PO (08:51)
[2025-06-04] MEDS: OCUVITE SOFTGEL PO (08:51)
--- NOTE | 2025-06-04 09:32 | W.PN.GS2 ---
Today's Communication / Plan
-
C/W ZANE
NPO for procedure
Assessment / Plan
-
79 yo male with h/o afib on Xarelto presenting with acute on chronic cholecystitis in setting of recent episode of choledocholithiasis
POD #1 Laparoscopic subtotal fenestrating cholecystectomy, laparoscopic KWABENA. Stone removed, mucosa ablated, duct unable to be clearly identified intraop
afebrile, stable BP
Tachycardic on cardizem gtt
ZANE nonbilious
Plan:
NPO for tentative ERCP today with gastroenterology. anticipate will need stent to prevent bile leak
ZANE to remain in place approx 1 week
Analgesics prn
Hold Xarelto 48-72h post operatively, Ok for heparin gtt no bolus if medically necessary when cleared by GI post ERCP procedure
OOB/Ambulate as able
Subjective Data
-
Date of Service: June 04, 2025
Pt seen and examined at bedside with Dr. Kumar. Denies n/v. Minimal incisional discomfort. Passing flatus.
Objective Data
-
Intake and Output
06/03/25 06/04/25 06/05/25
06:59 06:59 06:59
Intake Total 1745 / 1745
Output Total 340 / 340
Balance 1405 / 1405
Intake:
Oral fluids 250 / 250
IV fluids (Total) 1495 / 1495
Cardizem 95 / 95
LR 1000 / 1000
Normosol 300 / 300
Zosyn 100 / 100
Output:
Drain Output (Total) 40 / 40
Right Abdomen Ian-Potts 40 / 40
Urine, Voided 300 / 300
Other:
Number of approximated SMALL 1
amounts of urine
Vital Signs
Temp Pulse Resp BP Pulse Ox
97.5 F 139 20 112/74 97
06/04/25 07:23 06/04/25 08:44 06/04/25 07:23 06/04/25 08:44 06/04/25 07:23
Lab Results
06/04/25 00:31
06/04/25 00:31
Calcium 8.2 mg/dl (8.4-10.2) L 06/04/25:
Magnesium 2.0 mg/dl (1.6-2.3) 06/04/25:
Total Bilirubin 0.8 mg/dl (0.2-1.3) 06/04/25 00:
AST 31 U/L (17-59) 06/04/25:
ALT 16 U/L (0-50) 06/04/25 00:31
Alkaline Phosphatase 49 U/L (38-126) 06/04/25 00:31
Total Protein 5.3 g/dl (6.3-8.2) L 06/04/25 00:
Albumin 2.9 g/dl (3.5-5.0) L 06/04/25 00:31
Physical Exam
-
NAD
ABD soft, minimal distention, mild incisional and RUQ tenderness
ZANE with SSF
Incisions well approximated with intact glue
--- NOTE | 2025-06-04 09:58 | W.PN.CARDCBS ---
Addendum entered and electronically signed by Dulce Alvarez PA-C 06/04/25 16:23:
HRs persistently elevated this afternoon in 110s-130s at times. Asymptomatic. Discussed w/ RN, will increase Toprol to 25mg BID for better rate control.
Addendum entered and electronically signed by Chao Alarcon MD 06/04/25 10:39:
I saw and examined the patient.
The FACE BURLER or PA's note was reviewed and I agree with the note.
Comment: General: Well developed, well nourished in NAD.
Neck: Supple, no JVD, HJR, carotids +2 B/L, no bruits bilaterally.
Heart: Non displaced PMI, irregular, no murmurs, No S3, S4, no rubs.
Lungs: Clear to auscultation bilaterally, no wheeze, rhonchi, rubs bilaterally,
normal expiratory phase.
Extremities: No clubbing, cyanosis or edema bilaterally.
Neuro: Grossly nonfocal, awake, alert and oriented x3.
Stable cardiology status for ERCP. Continue rate control of atrial fibrillation. Consider outpatient cardioversion if remains in A-fib. Xarelto remains on hold and await clearance to restart anticoagulation. Discussed with daughter at bedside.
Original Note:
Today's Communication / Plan
-
Tentative plan for ERCP today
Continue abx per primary service.
In rate controlled AF on cardizem gtt and Toprol 25mg daily
Xarelto on hold for procedures, restart when safe.
Impression / Plan
-
Primary Network Project Manager/PCP: Dr. Marco Balderas of [facility]
Impression:
Presented with recurrent abdominal pain
Cholecystitis
Paroxysmal atrial fibrillation
Chronic anticoagulation with Xarelto
Hypertension
h/o possible CVA which daughter reports was noted on a prior scan, patient asymptomatic
BPH
Echo 05/31/2025: EF 55 to 60%. No significant valvular disease
Plan:
-Initially admitted 05/30/2025 with abdominal discomfort and cholecystitis as well as rapid A-fib. Improved symptomatically and declined surgery during initial admission, but presented back on 06/02/2025 with recurrent symptoms
-s/p laparoscopic subtotal fenestrated cholecystectomy 06/03/2025. Surgery following. Plan is for ERCP today w/ GI.
-Remains in rate controlled A-fib on review of telemetry. Continues on Cardizem gtt @15 as well as Toprol 25 mg daily. Uptitrate Toprol as needed for rate control following procedure.
-Outpatient Xarelto 20mg daily remains on hold while awaiting procedures. Eventually will restart once safe post procedurally.
-Hgb stable at 11.8.
-Echo 05/31 as above w/ preserved EF and no significant valvular disease.
-Continue abx per primary service.
HPI: Presented to ER with abdominal discomfort on 05/30/2025 and was in A-fib with spontaneously converted to sinus rhythm. Readmitted 06/02/2025 with abdominal pain and recurrent atrial fibrillation
Progress Note - Network Project Manager
Subjective
Date of Service: June 04, 2025
Feeling well this AM. No chest pain or SOB.
Objective
Labs:
06/04/25 00:31
06/04/25 00:31
Labs
Hgb 11.8 g/dL (13.0-18.0) L 06/04/25 00:31
Hct 35.7 % (39.0-52.0) L 06/04/25 00:31
Plt Count 201 10^3/uL (130-400) 06/04/25 00:31
Sodium 136 mmol/L (135-145) 06/04/25 00:
Potassium 4.0 mmol/L (3.5-5.1) 06/04/25 00:31
BUN 16 mg/dl (9-20) 06/04/25 00:
Creatinine 0.8 mg/dL (0.7-1.3) 06/04/25 00:31
Glucose 171 mg/dl (70-99) H 06/04/25 00:31
Troponins
06/03/25
08:21
Troponin I < 0.012
Vital Signs and I&O:
Vital Signs
Temp Pulse Resp BP Pulse Ox
97.5 F 139 20 112/74 97
06/04/25 07:23 06/04/25 08:44 06/04/25 07:23 06/04/25 08:44 06/04/25 07:23
Vital Signs
Temp Pulse Resp BP Pulse Ox
97.5 F 139 20 112/74 97
06/04/25 07:23 06/04/25 08:44 06/04/25 07:23 06/04/25 08:44 06/04/25 07:23
Intake & Output
06/02/25 06/03/25 06/04/25 06/05/25
06:59 06:59 06:59 06:59
Intake Total 1745 / 1745
Output Total 340 / 340
Balance 1405 / 1405
Physical Exam
Physical Exam
GEN: No distress, awake, alert, oriented x3
HEENT: supple, anicteric, mmm
LUNGS: CTA b/l, no wheezes/rales
CV: irregularly irregular, S1/S2, no murmur
EXT: No clubbing, cyanosis, or edema
NEURO: Gross non-focal
SKIN: Warm, dry, no rash
--- NOTE | 2025-06-04 13:18 | W.PN.GI.CBS2 ---
Today's Communication / Plan
-
No ERCP upon further discussion with Dr. Myrick. If concern for bile leak please obtain HIDA and reconsult. Will sign off, please call with questions.
Assessment / Plan
-
79 y.o. with suspected acute on chronic cholecystitis with mild CBD dilation and possible stricture. He is POD#1 laparoscopic subtotal fenestrated cholecystectomy and laparoscopic lysis of adhesions.
-no evidence of bile leak, if suspicion for bile leak please obtain HIDA and call GI
-discussed case with Dr. Myrick/Estella, no rule for prophylactic stenting at this time
-Discussed with cardiology, no plans for cardioversion during current admission
-Patient to f/u with Dr. Myrick in office to discuss abnormal MRI/possible need for EUS
-diet and anticoagulation per surgery.
GI will sign off, please call with questions.
Subjective
Subjective
Date of Service: June 04, 2025
Patient seen in follow-up, status post laparoscopic subtotal fenestrated cholecystectomy and laparoscopic lysis of adhesions. Stone was removed and mucosa was ablated but duct was unable to be clearly identified intraoperatively. Overall he is
doing well and has ZANE drain with small amount of serosanguineous fluid. No concern for bile leak at this time.
Objective
Data Reviewed
Laboratory Data:
Laboratory Results
06/04/25 00:31
06/04/25 00:31
Laboratory Results
Magnesium 2.0 mg/dl (1.6-2.3) 06/04/25 00:31
Total Bilirubin 0.8 mg/dl (0.2-1.3) 06/04/25 00:31
AST 31 U/L (17-59) 06/04/25 00:31
ALT 16 U/L (0-50) 06/04/25 00:31
Alkaline Phosphatase 49 U/L (38-126) 06/04/25 00:31
Lipase 153 U/L (23-300) 06/02/25 12:02
Vital Signs and I&O:
Vital Signs
Temp Pulse Resp BP Pulse Ox
98.3 F 139 16 112/74 98
06/04/25 11:32 06/04/25 08:44 06/04/25 11:32 06/04/25 08:44 06/04/25 11:32
I&O
06/03/25 06/04/25 06/05/25
06:59 06:59 06:59
Intake Total 1745 / 1745
Output Total 340 / 340
Balance 1405 / 1405
Physical Exam
Physical Exam
GENERAL: In no acute distress, appears comfortable
ABDOMEN: +BS; soft with minimal distension; mild RUQ tenderness; Bandage intake. serosanguinous fluid in drain
--- NOTE | 2025-06-04 15:13 | CM ---
spoke to pt in room, johnnie irvin, lives withher in a 2 story home with 2 steps to enter. she denies any dc plannin gneeds or dme's. plan is for dc to home when medically stable.
--- NOTE | 2025-06-04 15:19 | CM ---
spoke withpt in room, he lives with his daughter in a 2 story home with a first floor set up and 2 steps toe nter. he denies any dc planning needs or dme's. donavananju is for dc to home when medically stable.
[2025-06-04] MEDS: LOVENOX 40 MG SC (17:45)
--- NOTE | 2025-06-04 19:12 | PTCARENOTE ---
pt continues to be afib on the monitor, hr in the 140s, vss. incision sites cdi, estefany drain intact. pt and daughter educated on plan of care and both verbalized understanding. call carrion within reach.
[2025-06-04] MEDS: FLOMAX 0.4 MG PO (22:19)
[2025-06-04] MEDS: ULTRAM 50 MG PO (22:19)
--- NOTE | 2025-06-04 23:45 | PTCARENOTE ---
Received patient at change of shift. Afib on the monitor, HR in the 100s. Cardizem running as per protocol, see documentation. Abdominal incisions and ZANE drain intact. Pt complains of 7/10 RUQ pain, dressing and incisions intact, PRN pain medication
administered as per order, see MAR. Call carrion within reach.
[2025-06-05] VITALS (9 sets, daily range): BP systolic 96–129; BP diastolic 56–71; PULSE 68–99; O2SAT 97–98
[2025-06-05] MEDS: CARDIZEM 125 IV ×2 (01:04→08:47)
[2025-06-05] MEDS: LR 1000 IV (01:10)
[2025-06-05] MEDS: ZOSYN 50 IV ×4 (02:48→20:13)
[2025-06-05 03:31] LABS: Hematocrit 35.9 % (39.0-52.0); Hemoglobin 11.8 g/dL (13.0-18.0); Mean Corp Hgb Conc. 32.9 g/dL (33.0-37.0); Mean Corpuscular Volume 83.9 fL (80.0-94.0); Platelet Count 232 10^3/uL (130-400); Red Cell Dist. Width 13.5 % (11.5-14.5)
[2025-06-05 03:54] LABS: ALT (SGPT) < 10 U/L (0-50); AST (SGOT) 16 U/L (17-59); Albumin 2.7 g/dl (3.5-5.0); Alkaline Phosphatase 42 U/L (38-126); Blood Urea Nitrogen 16 mg/dl (9-20); Calcium 7.9 mg/dl (8.4-10.2); Carbon Dioxide 23 mmol/L (22-30); Chloride 101 mmol/L (98-107); Estimated Creatinine Clearance 79 ml/min; Glucose 167 mg/dl (70-99); Potassium 3.8 mmol/L (3.5-5.1); Sodium 138 mmol/L (135-145); Total Protein 5.4 g/dl (6.3-8.2); eGFR > 60.00
--- NOTE | 2025-06-05 08:16 | W.PN.CARDCBS ---
Addendum entered and electronically signed by Chao Alarcon MD 06/05/25 09:58:
I saw and examined the patient.
The CELLULAR EQUIPMENT REPAIRER or PA's note was reviewed and I agree with the note.
Comment: General: Well developed, well nourished in NAD.
Neck: Supple, no JVD, HJR, carotids +2 B/L, no bruits bilaterally.
Heart: Non displaced PMI, irregular, no murmurs, No S3, S4, no rubs.
Lungs: Scattered rhonchi
Extremities: No clubbing, cyanosis or edema bilaterally.
Neuro: Grossly nonfocal, awake, alert and oriented x3.
Remains with poorly controlled atrial fibrillation despite IV Cardizem. Will add amiodarone and continue Toprol. Hopefully can wean off of Cardizem. Await clearance from surgery to restart Xarelto. Consider outpatient cardioversion.
Original Note:
Today's Communication / Plan
-
add amiodarone
follow QTc
resume xarelto when ok per surgery
Impression / Plan
-
Primary Mallet Cutter/PCP: Dr. Marco Balderas of [facility]
Impression:
Presented with recurrent abdominal pain
Cholecystitis
Paroxysmal atrial fibrillation
Chronic anticoagulation with Xarelto
Hypertension
h/o possible CVA which daughter reports was noted on a prior scan, patient asymptomatic
BPH
Echo 05/31/2025: EF 55 to 60%. No significant valvular disease
Plan:
-Initially admitted 05/30/2025 with abdominal discomfort and cholecystitis as well as rapid A-fib. Improved symptomatically and declined surgery during initial admission, but presented back on 06/02/2025 with recurrent symptoms
-s/p laparoscopic subtotal fenestrated cholecystectomy 06/03/2025. Surgery following.
-This morning in A-fib with RVR with heart rates up into the 160s at times on IV Cardizem gtt. at 15 as well as Toprol 25 mg twice daily. Suspect patient has been paroxysmal as an outpatient for some time. Will initiate amiodarone 400 mg 3 times
daily and plan to stop IV Cardizem later today.
-Follow QTc by EKG, 450 ms by EKG 06/03. Repeat ordered for a.m.
-resume xarelto when ok per gen surg. hgb stable at 11.8
-Echo 05/31 as above w/ preserved EF and no significant valvular disease.
-Continue abx per primary service.
-d/w nursing
HPI: Presented to ER with abdominal discomfort on 05/30/2025 and was in A-fib with spontaneously converted to sinus rhythm. Readmitted 06/02/2025 with abdominal pain and recurrent atrial fibrillation
Progress Note - Mallet Cutter
Subjective
Date of Service: June 05, 2025
Denies palpitations.
Objective
Labs:
06/05/25 03:04
06/05/25 03:04
Labs
Hgb 11.8 g/dL (13.0-18.0) L 06/05/25 03:04
Hct 35.9 % (39.0-52.0) L 06/05/25 03:04
Plt Count 232 10^3/uL (130-400) 06/05/25 03:04
Sodium 138 mmol/L (135-145) 06/05/25 03:04
Potassium 3.8 mmol/L (3.5-5.1) 06/05/25 03:04
BUN 16 mg/dl (9-20) 06/05/25 03:04
Creatinine 0.7 mg/dL (0.7-1.3) 06/05/25 03:04
Glucose 167 mg/dl (70-99) H 06/05/25 03:04
Troponins
06/03/25
08:21
Troponin I < 0.012
Vital Signs and I&O:
Vital Signs
Temp Pulse Resp BP Pulse Ox
97.7 F 81 18 96/69 94
06/05/25 03:00 06/05/25 05:00 06/05/25 03:00 06/05/25 02:57 06/05/25 03:00
Vital Signs
Temp Pulse Resp BP Pulse Ox
97.7 F 81 18 96/69 94
06/05/25 03:00 06/05/25 05:00 06/05/25 03:00 06/05/25 02:57 06/05/25 03:00
Intake & Output
06/03/25 06/04/25 06/05/25 06/06/25
07:59 07:59 07:59 07:59
Intake Total 2225 / 2225
Output Total 890 / 890 110 / 110
Balance 1335 / 1335 -110 / -110
Physical Exam
Physical Exam
GEN: No distress, awake, alert, oriented x3
HEENT: supple, anicteric, mmm, EOMI
LUNGS: No audible wheezes
CV: Irreg irreg rhythm
EXT: No cyanosis, clubbing, edema
NEURO: Gross non-focal
SKIN: Warm, pink, dry. No rash
[2025-06-05] MEDS: PACERONE 400 MG PO ×3 (08:41→22:16)
--- NOTE | 2025-06-05 09:02 | W.PN.HOSP.TC ---
Today's Communication/Plan
-
Patient resumed on low residue diet
Toprol-XL 25 mg twice daily for better rate control
Amiodarone 400 mg 3 times daily added
Patient has leukocytosis with a white blood cell count of 11.6 -no obvious source of infection, dressings appear clean, possibly secondary to postsurgical inflammation/insult
Will resume Xarelto upon clearance from surgery
Assessment / Plan
Assessment / Plan
Assessment and plan:
- Acute cholecystitis secondary to choledocholithiasis: Unresolved
Abdominal ultrasound conducted on 06/02/2025 showed a 1.1 cm gallstone in the region of the neck of the gallbladder. The gallbladder slightly contracted although similar appearance to recent CT and MRI examinations. Negative sonographic Renteria sign
Zosyn given prior to scheduled cholecystectomy
General surgery on board and scheduled for cholecystectomy
Follow AST ALT and bilirubin
Patient on a low residue diet
Analgesics as needed
IV fluid support
ERCP was decided against -no evidence of bile leak and if there is suspicion of bile leak gastroenterology recommends obtaining a HIDA and to reconsult GI
Patient has a ZANE drain which will remain in place for approximately 1 week -currently draining blood-tinged serosanguineous fluid
Will resume anticoagulation after clearance from surgery
-Leukocytosis: Unresolved�monitoring
Patient had a white blood cell count of 11.6 on 06/05/2025
Continue Zosyn
Urine and blood cultures collected on 05/30/2025 produced no growth
No obvious source of infection, leukocytosis may be reaction postsurgery
- Recurrent paroxysmal atrial fibrillation: Monitoring
Was in atrial fibrillation in the emergency department
Cardiology consulted -appreciate cardiology recommendations
Continue Cardizem for rate control
Holding Xarelto until surgical clearance postprocedure -last dose was at 6 PM on 06/01/2025
Cardiology considering outpatient cardioversion if patient remains in atrial fibrillation
Toprol increased to 25 mg twice daily for better rate control
Amiodarone 400 mg p.o. 3 times daily added
- Essential hypertension: Stable�monitoring
Systolic blood pressure was 109 to the 120's in the ER
Continue antihypertensive medications
- Benign prostatic hyperplasia: Stable
Continue tamsulosin
Anticipated Discharge: 24 - 48 hours
Subjective/Interval History
-
Date of Service: June 05, 2025
Met with the patient at the bedside. Overall, he says that he is doing much better today. He states that he is 'getting better every day.' He is in positive spirits and believes that he will recover. Patient is under the impression that he will
have to stay for a week in order to recover.
Objective Data
-
Labs:
Laboratory Results
06/05/25
03:04
WBC 11.6 H
Hgb 11.8 L
Hct 35.9 L
Plt Count 232
Sodium 138
Potassium 3.8
Chloride 101
Carbon Dioxide 23
BUN 16
Creatinine 0.7
Glucose 167 H
Calcium 7.9 L
Total Bilirubin 0.5
AST 16 L
ALT < 10
Alkaline Phosphatase 42
Vital Signs:
Vital Signs
Temp Pulse Resp BP Pulse Ox
97.4 F 119 16 103/65 97
06/05/25 08:16 06/05/25 08:41 06/05/25 08:16 06/05/25 08:41 06/05/25 08:16
I&O
06/04/25 06/05/25 06/06/25
06:59 06:59 06:59
Intake Total 1745 / 1745 480 / 480
Output Total 340 / 340 660 / 660
Balance 1405 / 1405 -180 / -180
Review of Systems
-
History Source: Patient
Constitutional: Reports No Symptoms
EENT: Reports No Symptoms Reported
Respiratory: Reports No Symptoms
Cardiac: Reports No Symptoms
Abdomen/GI: Reports No Symptoms
Breast: Reports No Symptoms
Genitourinary: Reports No Symptoms
Musculoskeletal: Reports No Symptoms
Skin: Reports No Symptoms
Neuro: Reports No Symptoms
Endocrine: Reports No Symptoms
Hematologic / Lymphatic: Reports No Symptoms
Physical Exam
-
General: Well Developed, Well Nourished, No Apparent Distress and Comfortable
HEENT: Normocephalic, Atraumatic and Moist Mucous Membranes
Respiratory: Clear to Auscultation and Non Labored Respirations; Negative Wheezes, Rales, Rhonchi or Crackles
Cardiac: Irregular Rhythm; Negative Murmur or Rub
Breast: Deferred by me
GI: Soft, Nondistended and Normal Bowel Sounds
Musculoskeletal: No Clubbing, No Cyanosis and No Edema
Skin: Warm and Dry; Negative Rash, Ulcers or Lesions
Neuro: Awake, Alert, Oriented and AO x 3
Psych: Calm
--- NOTE | 2025-06-05 09:11 | W.PN.GS2 ---
Documented by User: Darling Fontenot MD, Resident 06/05/25 11:45
Today's Communication / Plan
-
Patient to F/U with Dr. Myrick in office
ZANE drain remains for 1 week
Analgesics prn
OOB/Ambulate
Advance diet as tolerated
Patient can go back on Xarelto
Monitor for bile in the drain
Continue to monitor WBC, if it decreases, can consider discharge next day.
Assessment / Plan
-
79 yo male with h/o afib on Xarelto presenting with acute on chronic cholecystitis in setting of recent episode of choledocholithiasis
POD #2 Laparoscopic subtotal fenestrating cholecystectomy, laparoscopic KWABENA. Stone removed, mucosa ablated, duct unable to be clearly identified intraop
afebrile, low BP
Tachycardic on cardizem gtt
ZANE nonbilious
Plan:
No ERCP upon discussion with Dr. Myrick
No evidence of bile leak, if suspicious, obtain HIDA and call GI
Discussed with Dr. Myrick/Estella, no need for prophylactic stenting at this time
Discussed with Cardiology, no plans for cardioversion during this admission
Time Spent
Total Time Spent with Patient (in minutes): 25
Subjective Data
-
Date of Service: June 05, 2025
79 y/o M with PMH A fib, nephrolithiasis, S/P open appendectomy, S/P open left inguinal hernia repair with mesh, was admitted with suspected acute on chronic cholecystitis with mild common bile duct dilatation and possible stricture. Patient is POD
2 from a laparoscopic subtotal fenestrated cholecystectomy and laparoscopic lysis of adhesions where 50 % of gallbladder was removed, with inferior aspect remaining due to inflammation, stone was removed, mucosa was ablated, but unable to properly
identify the duct clearly. Patient denies any pain except for earlier in the left lower quadrant, but he was given pain medication and states its working. Patient denies any nausea, vomiting, flatus. He states that he had pot roast for dinner last
night and is currently ready to make a bowel movement.
Objective Data
-
Intake and Output
06/04/25 06/05/25 06/06/25
06:59 06:59 06:59
Intake Total 1745 / 1745 480 / 480
Output Total 340 / 340 660 / 660
Balance 1405 / 1405 -180 / -180
Intake:
Oral fluids 250 / 250 480 / 480
IV fluids (Total) 1495 / 1495
Cardizem 95 / 95
LR 1000 / 1000
Normosol 300 / 300
Zosyn 100 / 100
Output:
Drain Output (Total) 40 / 40 110 / 110
Right Abdomen Ian-Potts 40 / 40 110 / 110
Urine, Voided 300 / 300 550 / 550
Vital Signs
Temp Pulse Resp BP Pulse Ox
97.4 F 119 16 103/65 97
06/05/25 08:16 06/05/25 08:41 06/05/25 08:16 06/05/25 08:41 06/05/25 08:16
Lab Results
06/05/25 03:04
06/05/25 03:04
Calcium 7.9 mg/dl (8.4-10.2) L 06/05/25 03:04
Magnesium 2.0 mg/dl (1.6-2.3) 06/04/25 00:31
Total Bilirubin 0.5 mg/dl (0.2-1.3) 06/05/25 03:04
AST 16 U/L (17-59) L 06/05/25 03:04
ALT < 10 U/L (0-50) 06/05/25 03:04
Alkaline Phosphatase 42 U/L (38-126) 06/05/25 03:04
Total Protein 5.4 g/dl (6.3-8.2) L 06/05/25 03:04
Albumin 2.7 g/dl (3.5-5.0) L 06/05/25 03:04
Vitals are abnormal. This morning patient had run of Afib RVR with heart rate up to 160's . Cardio put him on IV Cardizem gtt at 15 as well as Toprol 25 mg daily. Suspected to be paroxysmal. Plan to initiate Amiodarone 400 mg 3x daily and plan to
stop IV Cardizem later today.
Labs: WBC is still high
Glucose is high
Physical Exam
-
General: NAD
Chest: No Labored Breathing
Abdomen: soft with minimal distention. Mild RUQ tenderness. Serosanguineous fluid in drain.
Patient has a harrington catheter: No
Patient has a central line: No

Documented by User: Ahmet Soria MD 06/05/25 14:05
Today's Communication / Plan
-
-- Low fat diet
-- Pain control: Tylenol, Toradol, and Tramadol
-- Abx: Zosyn would plan for 4 days post-op
-- ZANE drain to remain in place for 10 days post-op
-- OK to resume Xarelto
-- Repeat labs tomorrow
Assessment / Plan
-
79 yo male with h/o afib on Xarelto presenting with acute on chronic cholecystitis in setting of recent episode of choledocholithiasis
POD #2 Laparoscopic subtotal fenestrating cholecystectomy, laparoscopic KWABENA
Intermittent tachy, BP soft
Labs with mild bump in WBC, Hb stbale, bilirubin and LFTs normal
Recovering well overall. Currently no clinical evidence of a bile leak. GI consult noted and appreciate assistance, holding on ERCP for now. Continue with low-fat diet. Continue with current pain regimen. Okay to resume Xarelto. Recheck labs
tomorrow. Uncertain what to exactly make of WBC bump, however, possibly related to stress from A-fib episodes
Plan:
-- Low fat diet
-- Pain control: Tylenol, Toradol, and Tramadol
-- Abx: Zosyn would plan for 4 days post-op
-- ZANE drain to remain in place for 10 days post-op
-- OK to resume Xarelto
-- Repeat labs tomorrow
Subjective Data
-
Date of Service: June 05, 2025
Issues with pain overnight, none currently. Feels well and is eager for discharge. Tolerating a low-fat diet without any nausea or vomiting. No fevers. No worsening abdominal pain. Ambulating. Voiding. Denies any chest pain or shortness of
breath.
Physical Exam
-
General: NAD
Chest: No Labored Breathing
Abdomen: soft, NT, mild distension, non-peritoneal, incisions c/d/i - no erythema, ecchymosis, or drainage, ZANE serosang, non-bilious
[2025-06-05] MEDS: LR IV ×2 (09:21→16:15)
[2025-06-05] MEDS: TOPROL XL 25 MG PO ×2 (09:21→20:14)
[2025-06-05] MEDS: OCUVITE SOFTGEL 1 CAP PO (09:21)
[2025-06-05] MEDS: VITAMIN B-12 PO (09:22)
--- NOTE | 2025-06-05 13:23 | PTCARENOTE ---
Pt converted to NSR at 1155. Will monitor.
[2025-06-05] MEDS: XARELTO 20 MG PO (17:33)
--- NOTE | 2025-06-05 21:03 | PTCARENOTE ---
Assumed care on pt at 1900, resting in bed with no c/o pain. Abd lap sites dry and intact, RUQ ZANE drain with small serosanguineous output, site covered with clean sponge gauze and abd pad d/t drainage around site during day shift. Pt remains SR with
occ PAC's on the monitor, HR 70-80's. BP stable. Abd soft round and slightly distended with + BS, small BM this shift. Call carrion within reach, POC ongoing.
[2025-06-05] MEDS: FLOMAX 0.4 MG PO (22:16)
[2025-06-06] MEDS: ZOSYN 50 IV ×3 (01:08→07:30)
[2025-06-06 03:51] VITALS: BP 128/79
[2025-06-06 04:07] LABS: Hematocrit 33.7 % (39.0-52.0); Hemoglobin 11.0 g/dL (13.0-18.0); Mean Corp Hgb Conc. 32.6 g/dL (33.0-37.0); Mean Corpuscular Volume 84.5 fL (80.0-94.0); Platelet Count 209 10^3/uL (130-400); Red Cell Dist. Width 13.8 % (11.5-14.5)
[2025-06-06 04:44] LABS: ALT (SGPT) 10 U/L (0-50); AST (SGOT) 16 U/L (17-59); Albumin 2.6 g/dl (3.5-5.0); Alkaline Phosphatase 36 U/L (38-126); Blood Urea Nitrogen 18 mg/dl (9-20); Calcium 8.2 mg/dl (8.4-10.2); Carbon Dioxide 29 mmol/L (22-30); Chloride 107 mmol/L (98-107); Estimated Creatinine Clearance 79 ml/min; Glucose 120 mg/dl (70-99); Potassium 3.8 mmol/L (3.5-5.1); Sodium 137 mmol/L (135-145); Total Protein 5.0 g/dl (6.3-8.2); eGFR > 60.00
[2025-06-06 07:21] VITALS: BP 122/65
--- NOTE | 2025-06-06 07:27 | W.PN.HOSP.TC ---
Today's Communication/Plan
-
Patient has a ZANE drain which will remain in place for approximately 1 week -currently draining blood-tinged serosanguineous fluid
Xarelto has been resumed
Continue Zosyn for 4 days postop
Toprol changed to 25 mg daily for better rate control
Amiodarone decreased to 200 mg p.o. 3 times daily added for 4 weeks then will decrease to 200 mg daily
Patient scheduled to follow-up with Dr. Balderas of [facility]
Patient cleared for discharge by cardiology standpoint
Will start to move forward with discharge planning.
Assessment / Plan
Assessment / Plan
HPI: Patient presented to ER with abdominal discomfort found to be cholecystitis with cholelithiasis on 05/30/2025 and was in A-fib with spontaneously converted to sinus rhythm patient left without getting surgery. Readmitted 06/02/2025 with
abdominal pain secondary to cholecystitis with cholelithiasis and recurrent atrial fibrillation.
Assessment and plan:
- Acute cholecystitis secondary to choledocholithiasis: Unresolved
Abdominal ultrasound conducted on 06/02/2025 showed a 1.1 cm gallstone in the region of the neck of the gallbladder. The gallbladder slightly contracted although similar appearance to recent CT and MRI examinations. Negative sonographic Renteria sign
Zosyn given prior to scheduled cholecystectomy
Patient is postoperative day 2 for subtotal laparoscopic fenestrating cholecystectomy
Follow AST ALT and bilirubin
Patient on a low fat diet
Analgesics as needed
IV fluid support
ERCP was decided against -no evidence of bile leak and if there is suspicion of bile leak gastroenterology recommends obtaining a HIDA and to reconsult GI
Patient has a ZANE drain which will remain in place for approximately 1 week -currently draining blood-tinged serosanguineous fluid
Xarelto has been resumed
Continue Zosyn for 4 days postop
-Leukocytosis: Resolved�monitoring
Patient had a white blood cell count of 11.6 on 06/05/2025
Continue Zosyn for 4 days postop
Urine and blood cultures collected on 05/30/2025 produced no growth
No obvious source of infection, leukocytosis may be reaction postsurgery
Leukocytosis resolved on 06/06/2025 with a white blood cell count of 7.6
- Recurrent paroxysmal atrial fibrillation: Monitoring
Was in atrial fibrillation in the emergency department
Cardiology consulted -appreciate cardiology recommendations
Continue Cardizem for rate control
Holding Xarelto until surgical clearance postprocedure -last dose was at 6 PM on 06/01/2025
Cardiology considering outpatient cardioversion if patient remains in atrial fibrillation
Toprol changed to 25 mg daily for better rate control
Amiodarone decreased to 200 mg p.o. 3 times daily added for 4 weeks then will decrease to 200 mg daily
Patient scheduled to follow-up with Dr. Balderas of [facility]
Patient cleared for discharge by cardiology standpoint
- Essential hypertension: Stable�monitoring
Systolic blood pressure was 109 to the 120's in the ER
Continue antihypertensive medications
- Benign prostatic hyperplasia: Stable
Continue tamsulosin
Anticipated Discharge: 24 - 48 hours
Subjective/Interval History
-
Date of Service: June 06, 2025
Met with patient at the bedside. He was sitting in his chair eating breakfast with a smile on his face. He states that he is ready to go home and is excited about his upcoming discharge. He feels like he is back at his baseline and is on the road
to recovery. He again states that he 'feels better every day.'
Objective Data
-
Labs:
Laboratory Results
06/06/25
03:50
WBC 7.6
Hgb 11.0 L
Hct 33.7 L
Plt Count 209
Sodium 137
Potassium 3.8
Chloride 107
Carbon Dioxide 29
BUN 18
Creatinine 0.7
Glucose 120 H
Calcium 8.2 L
Total Bilirubin 0.4
AST 16 L
ALT 10
Alkaline Phosphatase 36 L
Vital Signs:
Vital Signs
Temp Pulse Resp BP Pulse Ox
98.1 F 64 20 122/65 96
06/06/25 07:21 06/06/25 07:21 06/06/25 07:21 06/06/25 07:21 06/06/25 07:21
I&O
06/05/25 06/06/25 06/07/25
06:59 06:59 06:59
Intake Total 480 / 480 1070 / 1070
Output Total 660 / 660 45 / 45
Balance -180 / -180 1025 / 1025
Review of Systems
-
History Source: Patient
All other systems: Reviewed and negative
Physical Exam
-
General: Well Developed, Well Nourished, No Apparent Distress and Comfortable
HEENT: Normocephalic, Atraumatic and Moist Mucous Membranes
Respiratory: Clear to Auscultation
Cardiac: Regular Rhythm and S1/S2
Breast: Deferred by me
GI: Soft, Nontender, Nondistended, Normal Bowel Sounds and Other (Dressings clean with no signs of wound infection from procedure)
Musculoskeletal: No Clubbing, No Cyanosis and No Edema
Neuro: Awake, Alert, Oriented and AO x 3
Psych: Calm
--- NOTE | 2025-06-06 07:52 | W.PN.CARDCBS ---
Addendum entered and electronically signed by Chao Alarcon MD 06/06/25 11:11:
I saw and examined the patient.
The CAN STRIPER or PA's note was reviewed and I agree with the note.
Comment: General: Well developed, well nourished in NAD.
Neck: Supple, no JVD, HJR, carotids +2 B/L, no bruits bilaterally.
Heart: Non displaced PMI, RRR, no murmurs, No S3, S4, no rubs.
Lungs: Clear to auscultation bilaterally, no wheeze, rhonchi, rubs bilaterally,
normal expiratory phase.
Extremities: No clubbing, cyanosis or edema bilaterally.
Neuro: Grossly nonfocal, awake, alert and oriented x3.
He is converted to sinus rhythm. Stable cardiology status for discharge. Will discharge on amiodarone 200 mg twice daily for 4 weeks then 200 mg daily. Continue Toprol and Xarelto. Follow-up with women designer in [place]. Discussed with
daughter in detail.
Original Note:
Today's Communication / Plan
-
amiodarone 200mg BID for 4 weeks then decrease to 200mg daily
toprol 25mg daily
xarelto 20mg QPM
post op care per surg
for follow up with Dr. Balderas upon MD
Impression / Plan
-
Primary Physical Therapist/PCP: Dr. Marco Balderas of [facility]
Impression:
Presented with recurrent abdominal pain
Cholecystitis
Paroxysmal atrial fibrillation
Chronic anticoagulation with Xarelto
Hypertension
h/o possible CVA which daughter reports was noted on a prior scan, patient asymptomatic
BPH
Echo 05/31/2025: EF 55 to 60%. No significant valvular disease
Plan:
-Initially admitted 05/30/2025 with abdominal discomfort and cholecystitis as well as rapid A-fib. Improved symptomatically and declined surgery during initial admission, but presented back on 06/02/2025 with recurrent symptoms
-s/p laparoscopic subtotal fenestrated cholecystectomy 06/03/2025. Surgery following.
-he has been having paroxysmal atrial fibrillation despite increasing rate control. amiodarone was added 06/05 as suspected having PAF as OP. He converted to SR 06/05 and remains in SR on review of tele at this time with PACs. will decrease amiodarone
to 200mg BID for 4 weeks then decrease further to 200mg daily
-QTc stable by EKG 06/06
-xarelto resumed 8PM
-Echo 05/31 as above w/ preserved EF and no significant valvular disease.
-Continue abx per primary service.
-ok for DC to home today from cardiac standpoint
HPI: Presented to ER with abdominal discomfort on 05/30/2025 and was in A-fib with spontaneously converted to sinus rhythm. Readmitted 06/02/2025 with abdominal pain and recurrent atrial fibrillation
Progress Note - Physical Therapist
Subjective
Date of Service: June 06, 2025
no complains. eager for DC
Objective
Labs:
06/06/25 03:50
06/06/25 03:50
Labs
Hgb 11.0 g/dL (13.0-18.0) L 06/06/25 03:50
Hct 33.7 % (39.0-52.0) L 06/06/25 03:50
Plt Count 209 10^3/uL (130-400) 06/06/25 03:50
Sodium 137 mmol/L (135-145) 06/06/25 03:50
Potassium 3.8 mmol/L (3.5-5.1) 06/06/25 03:50
BUN 18 mg/dl (9-20) 06/06/25 03:50
Creatinine 0.7 mg/dL (0.7-1.3) 06/06/25 03:50
Glucose 120 mg/dl (70-99) H 06/06/25 03:50
Troponins
06/03/25
08:21
Troponin I < 0.012
Vital Signs and I&O:
Vital Signs
Temp Pulse Resp BP Pulse Ox
98.1 F 64 20 122/65 96
06/06/25 07:21 06/06/25 07:21 06/06/25 07:21 06/06/25 07:21 06/06/25 07:21
Vital Signs
Temp Pulse Resp BP Pulse Ox
98.1 F 64 20 122/65 96
06/06/25 07:21 06/06/25 07:21 06/06/25 07:21 06/06/25 07:21 06/06/25 07:21
Intake & Output
06/03/25 06/04/25 06/05/25 06/06/25
07:59 07:59 07:59 07:59
Intake Total 2225 / 2225 1070 / 1070
Output Total 890 / 890 110 / 110 45 / 45
Balance 1335 / 1335 -110 / -110 1025 / 1025
Physical Exam
Physical Exam
GEN: No distress, awake, alert, oriented x3. sitting in chair
HEENT: supple, anicteric, mmm, eomi
LUNGS: CTA B/L, no wheezes/rales
CV: Reg, S1/S2, no murmur
ABD: soft, BS+, NT/ND
EXT: No cyanosis, clubbing. trace edema of B/L LE
NEURO: Gross non-focal
SKIN: Warm, pink, dry. No rash
[2025-06-06] MEDS: VITAMIN B-12 PO (08:32)
[2025-06-06] MEDS: OCUVITE SOFTGEL 1 CAP PO (08:32)
[2025-06-06] MEDS: PACERONE 400 MG PO (08:32)
[2025-06-06] MEDS: TOPROL XL 25 MG PO (08:33)
[2025-06-06] MEDS: TOPROL XL PO (08:34)
--- NOTE | 2025-06-06 10:21 | CM ---
CM following for DC planning needs.
Met w/ patient at bedside to introduce CM. Reviewed initial assessment. Pt. resides w/ dtr. in a private 2 STH w/ 1st floor set up. Pt. is functionally indep. prior to admission w/ ADLs, mobility.
Pt. feels well and is hopeful for DC to home without needs.
Will cont. to follow.
--- NOTE | 2025-06-06 11:12 | W.PN.GS2 ---
Today's Communication / Plan
-
-- ZANE drain to remain in place for 10 days post-op
-- OK for DC from surgical standpoint
-- DC instructions updated
Assessment / Plan
-
79 yo male with h/o afib on Xarelto presenting with acute on chronic cholecystitis in setting of recent episode of choledocholithiasis
POD#4 Laparoscopic subtotal fenestrating cholecystectomy, laparoscopic KWABENA
AVSS, improved Hr control
Labs notable for normalized WBC, normal bilirubin, LFTs, and ALP
Recovering well overall. Currently no clinical evidence of a bile leak. GI consult noted and appreciate assistance, holding on ERCP for now. Continue with low-fat diet. Continue with current pain regimen
Plan:
-- Low fat diet
-- Pain control: Tylenol, Toradol, and Tramadol
-- Abx: Zosyn (or Augmentin on DC) would plan for 4 days post-op
-- ZANE drain to remain in place for 10 days post-op
-- OK for DC from surgical standpoint
-- DC instructions updated
Subjective Data
-
Date of Service: June 06, 2025
No complaints. Pain well-controlled. Tolerating a diet. No nausea or vomiting. No fevers. Voiding. Ambulating. No chest pain or shortness of breath.
Objective Data
-
Intake and Output
06/05/25 06/06/25 06/07/25
06:59 06:59 06:59
Intake Total 480 / 480 1070 / 1070
Output Total 660 / 660 45 / 45
Balance -180 / -180 1025 / 1025
Intake:
Oral fluids 480 / 480 480 / 480
IV fluids (Total) 590 / 590
Cardizem 90 / 90
LR 300 / 300
Zosyn 200 / 200
Output:
Drain Output (Total) 110 / 110 45 / 45
Right Abdomen Ian-Potts 110 / 110 45 / 45
Urine, Voided 550 / 550
Other:
Number of approximated MODERATE 2
amounts of urine
Vital Signs
Temp Pulse Resp BP Pulse Ox
98.1 F 73 20 122/65 96
06/06/25 07:21 06/06/25 09:00 06/06/25 07:21 06/06/25 08:33 06/06/25 07:21
Lab Results
06/06/25 03:50
06/06/25 03:50
Calcium 8.2 mg/dl (8.4-10.2) L 06/06/25 03:50
Magnesium 2.0 mg/dl (1.6-2.3) 06/04/25 00:31
Total Bilirubin 0.4 mg/dl (0.2-1.3) 06/06/25 03:50
AST 16 U/L (17-59) L 06/06/25 03:50
ALT 10 U/L (0-50) 06/06/25 03:50
Alkaline Phosphatase 36 U/L (38-126) L 06/06/25 03:50
Total Protein 5.0 g/dl (6.3-8.2) L 06/06/25 03:50
Albumin 2.6 g/dl (3.5-5.0) L 06/06/25 03:50
Physical Exam
-
Gen: NAD
Abd: soft, NT/ND, non-peritoneal, incisions c/d/i - no erythema, ecchymosis or drainage, ZANE serosang, non-bilious
Patient has a harrington catheter: No
Patient has a central line: No
[2025-06-06 11:15] VITALS: BP 123/63
--- NOTE | 2025-06-06 12:45 | W.DCSUMMARY ---
Documented by User: Mikayla Abdi MD, Resident 06/06/25 13:04
Discharge Summary
Discharge Data
Date of Admission: 06/02/25
Date of Discharge: 06/06/25
-
Pending Results: Yes
Additional Pending Results:
Patient to have TSH and T4 drawn 1 week after discharge to be followed up by primary care provider in the outpatient setting.
Hospital Course
Discharging Physician : Dr. Chao Aranda
Disposition : Home
Primary care physician : Unknown
Principal Discharge diagnosis : Acute on chronic cholecystitis in the setting of recent choledocholithiasis
Chronic Discharge diagnosis :
Paroxysmal atrial fibrillation
Essential hypertension
Benign prostatic hyperplasia
Hospital Course : Patient is a 79-year-old man with a past medical history of paroxysmal atrial fibrillation on Xarelto, essential hypertension, and benign prostatic hyperplasia who presented to the emergency department with abdominal pain. The day
prior to his presentation to the emergency department he had just been discharged from the hospital for abdominal pain secondary to cholecystitis and atrial fibrillation with rapid ventricular response. At that time the patient was offered surgery
but since he felt well he declined surgery and wanted to go home. The next day he return to the emergency department after eating chicken noodle soup and having recurrence of the same problematic abdominal pain that brought him into the emergency
department before returning. Abdominal ultrasound conducted on 06/02/2025 in the emergency department showed a 1.1 cm gallstone in the region of the neck of the gallbladder. The gallbladder was slightly contracted although similar in appearance to
recent CT and MRI examinations. There was also a negative sonographic Renteria sign. Patient was given Zosyn. General surgery and cardiology was consulted. Patient was admitted to the IMU for acute on chronic cholecystitis in the setting of a
recent episode of choledocholithiasis.
The patient was scheduled for cholecystectomy at the OR. Patient ended up undergoing a laparoscopic subtotal fenestrating cholecystectomy due to the severe chronic inflammation with transverse colon and duodenum draped onto the gallbladder.
Approximately 50% of the gallbladder was removed with an inability to remove the inferior aspect due to severe inflammation. Stone was removed, mucosa was ablated, and duct was unable to be clearly identified with no leakage of bile. Patient
tolerated this procedure well and was continued on IV antibiotics. ZANE drain remained in place after the surgery and drained bloody tinged serosanguineous fluid. There was consideration of tentative ERCP following the the surgery but there was no
evidence of bile leak and it was felt that further procedures were not indicated as the patient was stabilizing. It was decided upon that the patient would follow-up with Dr. Myrick in the office to discuss possible need for EUS in the future if
indicated. The patient will follow-up with surgery in the outpatient setting to have the ZANE drain removed at 7 days postoperatively. The patient continue to go in and out of atrial fibrillation and cardiology in order to get better rate control
started the patient on amiodarone 200 mg twice daily for 4 weeks to be later on reduced to 200 mg daily. They recommended that the patient continue on their Toprol and Xarelto doses. The patient has a scaffolder in [place] and will follow-up
with that scaffolder following discharge. Patient tolerated his low residue diet and felt that he was ready for discharge.
The patient has reached maximal benefit from this hospital admission and the patient is appropriate for discharge at the present time. There are no barriers that would impede the patient from being discharged from the hospital at the present time.
The patient should follow-up with surgery after discharge within 7 days to have the ZANE drain removed. The patient should follow-up with his scaffolder within 1 to 2 weeks after discharge. The patient should follow-up with their primary care
provider within 1 week following discharge. Instructions on wound care were provided to the patient at discharge.
Important imaging findings :
- Abdomen/pelvis CT conducted on 05/30/2025:
Intrahepatic and extrahepatic bile duct dilatation. No appreciable choledocholithiasis by CT, but recommend correlation with laboratory values and MRCP/ERCP as clinically indicated. Possible cholelithiasis in the region of the gallbladder neck.
- Abdominal ultrasound conducted on 05/30/2025:
Cholelithiasis. No secondary sonographic findings to indicate acute cholecystitis. Mild intrahepatic and extrahepatic bile duct dilatation.
- Abdominal MRI conducted on 06/01/2025:
There is a 1.3 cm stone within the gallbladder neck. There is small volume pericholecystic fluid with some mild enhancement of the gallbladder wall which may represent acute cholecystitis.
The common bile duct is mildly dilated measuring 0.9 cm without evidence of choledocholithiasis. There is apparent mild narrowing of the distal common bile duct near the ampulla which may represent a small stricture.
Trace bilateral pleural effusions with likely adjacent atelectasis as well as trace perisplenic and perihepatic free fluid.
- Abdominal ultrasound conducted on 06/02/2025:
Limited ultrasound of the right upper quadrant.
1.1 cm gallstone in the region of the neck of the gallbladder. The gallbladder is slightly contracted, although similar appearance to recent CT and MRI examinations. No evidence for gallbladder wall thickening or pericholecystic edema. The patient
has a negative sonographic Renteria's sign.
Superior aspect of the common bile duct is visualized, measuring 3 mm. The mid to distal aspect of the common bile duct is unable to be visualized.
Procedure findings :
- Laparoscopic subtotal fenestrating cholecystectomy, laparoscopic KWABENA conducted on 06/03/2025:
Operative Findings:
1. Severe chronic inflammation with transverse colon and duodenum draped onto GB
2. Top down cholecystectomy removing 50% of GB with inability to remove inferior aspect due to severe inflammation
3. Stone removed, mucosa ablated, duct unable to be clearly identified, no leakage of bile
4. 19 Fr Alvino drain into operative field
Discharge Plan
-
Patient Disposition: Home (Routine Discharge)
Discharge Diagnosis/Procedures: Laparoscopic subtotal cholecystectomy
Condition: Good
Diet: Low Fat
Activity: No strenuous activity
Additional Activity: Do not lift over 20lbs for the next 2-3 weeks
Bathing Restrictions: OK to Shower
Blood Work: Repeat TSH + T4 within one week
Wound Care: Keep incisions clean and dry. Glue will flake off in 2 to 3 weeks. Stitches will dissolve. Keep ZANE drain safe and protected. Empty daily and record outputs. Call if drain outputs turn green.
Activity Restrictions/Additional Instructions:
Call for fevers (>100.5), nausea or vomiting, worsening abdominal pain, yellowing of the eyes or skin, green ZANE drain output
Instructions: How to care for a closed suction drain
Referrals:
monica delgado [Other] - in one to two weeks
Referral Note: Please follow up within 1 month of discharge.
Chao Alarcon MD [Active, Cardiology] - in one to two weeks
Ahmet Soria MD [Active, Surgical] - in less than 1 week
Luigi Myrick MD [Active, Gastroenterology] - 09/17/25 10:45 am
Referral Note: Abnormal MRI
Additional Discharge Medication Instructions: Continue amiodarone 200mg twice daily for 4 weeks then decrease to 200mg daily as of 07/04/25!
Prescriptions:
New
amiodarone 200 mg Tablet
200 mg PO BID Qty: 60 0RF
Continued
tamsulosin [Flomax] 0.4 mg Capsule
0.4 mg PO HS
metoprolol succinate [Toprol XL] 25 mg Tablet Extended Release 24 Hr
25 mg PO DAILY
amlodipine-benazepril 10-40 mg Capsule
1 cap PO DAILY
Xarelto 20 mg Tablet
20 mg PO QPM
cholecalciferol (vitamin D3) 1,250 mcg (50,000 unit) Capsule
1,250 mcg PO SA
Vit Eyes Supplement
1 tab PO DAILY
Patient Comments:
06/02/2025, supplement for the eyes.
cyanocobalamin (vitamin B-12)
1 tab PO DAILY
Discharge Orders:
Discharge Patient (As Directed); Ordered 06/06/25
Ordered By: Mikayla Abdi
Care Plan Goals
Care Plan Goals:
Problem: Readiness for enhanced knowledge related to diagnosis and treatment plan
Goal: Understand your diagnosis and treatment plan needs, including medications if applicable.
Instructions: Know your diagnosis, underlying causes and treatment plan options, including medications if applicable. Consult with your health care team to learn about your diagnosis and treatment plan, including medications if applicable.
Discharge Date and Time
Discharge Date/Time: 06/06/25 13:55
Print Language: RWANDAN

Documented by User: Chao Aranda DO 06/06/25 15:35
Discharge Summary
Discharge Data
Date of Admission: 06/02/25
Date of Discharge: 06/06/25
Total time spent discharging patient (in min): 32
Discharge Plan
-
Patient Disposition: Home (Routine Discharge)
Discharge Diagnosis/Procedures: Laparoscopic subtotal cholecystectomy
Condition: Good
Diet: Low Fat
Activity: No strenuous activity
Additional Activity: Do not lift over 20lbs for the next 2-3 weeks
Bathing Restrictions: OK to Shower
Blood Work: Repeat TSH + T4 within one week
Wound Care: Keep incisions clean and dry. Glue will flake off in 2 to 3 weeks. Stitches will dissolve. Keep ZANE drain safe and protected. Empty daily and record outputs. Call if drain outputs turn green.
Activity Restrictions/Additional Instructions:
Call for fevers (>100.5), nausea or vomiting, worsening abdominal pain, yellowing of the eyes or skin, green ZANE drain output
Instructions: How to care for a closed suction drain
Referrals:
monica delgado [Other] - in one to two weeks
Referral Note: Please follow up within 1 month of discharge.
Chao Alarcon MD [Active, Cardiology] - in one to two weeks
Ahmet Soria MD [Active, Surgical] - in less than 1 week
Luigi Myrick MD [Active, Gastroenterology] - 09/17/25 10:45 am
Referral Note: Abnormal MRI
Additional Discharge Medication Instructions: Continue amiodarone 200mg twice daily for 4 weeks then decrease to 200mg daily as of 07/04/25!
Prescriptions:
New
amiodarone 200 mg Tablet
200 mg PO BID Qty: 60 0RF
Continued
tamsulosin [Flomax] 0.4 mg Capsule
0.4 mg PO HS
metoprolol succinate [Toprol XL] 25 mg Tablet Extended Release 24 Hr
25 mg PO DAILY
amlodipine-benazepril 10-40 mg Capsule
1 cap PO DAILY
Xarelto 20 mg Tablet
20 mg PO QPM
cholecalciferol (vitamin D3) 1,250 mcg (50,000 unit) Capsule
1,250 mcg PO SA
Vit Eyes Supplement
1 tab PO DAILY
Patient Comments:
06/02/2025, supplement for the eyes.
cyanocobalamin (vitamin B-12)
1 tab PO DAILY
Discharge Orders:
Discharge Patient (As Directed); Ordered 06/06/25
Ordered By: Mikayla Abdi
Care Plan Goals
Care Plan Goals:
Problem: Readiness for enhanced knowledge related to diagnosis and treatment plan
Goal: Understand your diagnosis and treatment plan needs, including medications if applicable.
Instructions: Know your diagnosis, underlying causes and treatment plan options, including medications if applicable. Consult with your health care team to learn about your diagnosis and treatment plan, including medications if applicable.
Discharge Date and Time
Discharge Date/Time: 06/06/25 13:55
Print Language: RWANDAN
== END 2025-06-06 13:55 | disposition home or self-care (01) | DRG 419 ==
LOC: IVU 15:45
PROVIDERS: Internal Medicine; Physician Assistant; ADMITTING PHYSICIAN Hospitalist; ATTENDING PHYSICIAN Internal Medicine; CONSULT PHYSICIAN Internal Medicine; CONSULT PHYSICIAN Internal Medicine Cardiovascular Disease; CONSULT PHYSICIAN Surgery; EMERGENCY PHYSICIAN Emergency Medicine
PROC: 0FT44ZZ Resection of Gallbladder, Percutaneous Endoscopic Approach (ICD-10-PCS; 2025-06-02)
DX: K80.12 Calculus of gallbladder with acute and chronic cholecystitis without obstruction (principal); I48.0 Paroxysmal atrial fibrillation; I10 Essential (primary) hypertension; Z79.01 Long term (current) use of anticoagulants; Z87.891 Personal history of nicotine dependence; Z79.899 Other long term (current) drug therapy
CPT/HCPCS: 76705; 80053; 83690; 83735; 84484; 85025; 85027; 88304; 93005; 96365; 96367; 96375; 97162; 97167; 99285